=== PATIENT | female | born 1960 | race Caucasian/White ===

== ENCOUNTER → 2016-09-04 | Outpatient (CLI) | payer OTHER ==
--- NOTE | 2016-09-04 18:30 | XR ---
EXAMINATION TYPE: XR chest 2V DATE OF EXAM: 09/04/2016 6:15 PM COMPARISON: Prior chest x-ray May 01, 2011. HISTORY: Cough and congestion for 6 days. TECHNIQUE: Frontal and lateral views of the chest are obtained. FINDINGS: There is no focal air space opacity, pleural effusion, or pneumothorax seen. The cardiac silhouette size is within normal limits. The osseous structures are intact. IMPRESSION: No suspicious acute pulmonary process.
== END ==
LOC: RADXRMAIN 17:53
PROVIDERS: ATTEND Internal Medicine
DX: R05 Cough (principal)
CPT/HCPCS: 71020

== ENCOUNTER 2017-11-19 08:16 | Observation (INO) | payer OTHER ==
[2017-11-19] MEDS ORDERED: SODIUM CHLORIDE 0.9% 1,000 ML IV STA ×2 (08:51)
[2017-11-19] MEDS ORDERED: PANTOPRAZOLE 40 MG/10 ML VIAL IVP STA (09:17)
[2017-11-19] MEDS ORDERED: KETOROLAC 30 MG/ML 1 ML VIAL IVP STA (09:17)
[2017-11-19] MEDS ORDERED: MORPHINE SULFATE 2 MG/ML SYRINGE IVP STA ×2 (09:17→12:17)
[2017-11-19 09:26] LABS: Basophils % (A) 0 %; Eosinophils # (A) 0.1 k/uL (0-0.7); Eosinophils % (A) 1 %; HCT 41.6 % (34.0-46.0); HGB 14.2 gm/dL (11.4-16.0); Lymphocytes # (A) 1.1 k/uL (1.0-4.8); Lymphocytes % (A) 16 %; MCH 30.8 pg (25.0-35.0); MCHC 34.2 g/dL (31.0-37.0); MCV 89.9 fL (80.0-100.0); Mean Platelet Volume 6.7; Monocytes # (A) 0.3 k/uL (0-1.0); Monocytes % (A) 5 %; Neutrophils # (A) 5.1 k/uL (1.3-7.7); Neutrophils % (A) 76 %; Platelet Count 288 k/uL (150-450); RBC 4.62 m/uL (3.80-5.40); RDW 12.7 % (11.5-15.5); WBC 6.7 k/uL (3.8-10.6)
[2017-11-19] MEDS: ONDANSETRON 4 MG/2 ML VIAL IVP STA ×2 (09:26→12:30)
[2017-11-19 09:33] LABS: Appearance,Urine Clear (Clear); Bilirubin,Urine Negative (Negative); Blood,Urine Negative (Negative); Color,Urine Yellow; Glucose,Urine (UA) Negative (Negative); Ketones,Urine Negative (Negative); Leukocyte Esterase,Urine Trace (Negative); Mucus,Urine Rare /hpf; Nitrite,Urine Negative (Negative); PH, Urine 7.5 (5.0-8.0); Protein,Urine Trace (Negative); RBC,Urine 2 /hpf (0-5); Specific Gravity,Urine 1.016 (1.001-1.035); Squamous Epithelial Cell,Urine 2 /hpf (0-4); Urobilinogen,Urine <2.0 mg/dL (<2.0); WBC,Urine 4 /hpf (0-5)
[2017-11-19 09:38] LABS: ALT 31 U/L (9-52); AST 29 U/L (14-36); Albumin 4.3 g/dL (3.5-5.0); Alkaline Phosphatase 77 U/L (38-126); Amylase 101 U/L (30-110); Anion Gap 12 mmol/L; Blood Urea Nitrogen 13 mg/dL (7-17); Calcium 9.6 mg/dL (8.4-10.2); Carbon Dioxide 25 mmol/L (22-30); Chloride 104 mmol/L (98-107); Glucose 133 mg/dL (74-99); Lipase 550 U/L (23-300); Potassium 4.3 mmol/L (3.5-5.1); Sodium 141 mmol/L (137-145); Total Bilirubin 0.4 mg/dL (0.2-1.3); Total Protein 6.9 g/dL (6.3-8.2)
[2017-11-19 09:39] LABS: Partial Thromboplastin Time 23.5 sec (22.0-30.0); Prothrombin Time 9.6 sec (9.0-12.0)
--- NOTE | 2017-11-19 10:02 | XR ---
EXAMINATION TYPE: XR KUB DATE OF EXAM: 11/19/2017 CLINICAL DATA: 57-year-old female with abdominal pain, H COMPARISON: 05/01/2011 FINDINGS: Lung bases are clear. No evidence for free intraperitoneal air. No dilated small bowel or air-fluid levels. Scattered air is seen throughout the colon. Mild stool in the right side of the colon. No suspicious calcifications identified. IMPRESSION: No evidence of bowel obstruction or free intraperitoneal air.
--- NOTE | 2017-11-19 10:52 | ED ---
Abdominal Pain HPI <Buddy Davalos - Last Filed: 11/19/17 11:55> - General Source: patient, RN notes reviewed, old records reviewed Mode of arrival: ambulatory Limitations: no limitations <Mariah Wlelington - Last Filed: 11/19/17 12:36> - General Chief Complaint: Abdominal Pain Stated Complaint: abd pain Time Seen by Provider: 11/19/17 08:51 - History of Present Illness Initial Comments: 49-year-old female history of gastritis and ulcers presents today with onset of abdominal pain 4am. She reports that she did have a lot of fatty foods at a carnival yesterday evening. Patient states that she's had taken Maalox and Tums and has had multiple subsequent vomiting. She reports no alcohol consumption. He denies any recent fever or chills. She's been passing gas normally and normal stools. No blood in her emesis. She does have a history of gastritis.Patient denies any recent fever, chills, shortness of breath, chest pain, back pain, abdominal pain, nausea vomiting, numbness or tingling, dysuria or hematuria, constipation or diarrhea, headaches or visual changes, or any other current symptoms (Mariah Wellington) - Related Data Home Medications Medication Instructions Recorded Confirmed Aspirin EC [Ecotrin Low Dose] 81 mg PO DAILY 11/19/17 11/19/17 Vital Reds Herbal Supplement 1 scoop PO DAILY 11/19/17 11/19/17 Allergies Allergy/AdvReac Type Severity Reaction Status Date / Time No Known Allergies Allergy Verified 11/19/17 09:41 Review of Systems ROS Other: All systems not noted in ROS Statement are negative. <Buddy Davalos - Last Filed: 11/19/17 11:55> ROS Other: All systems not noted in ROS Statement are negative. <Mariah Wellington - Last Filed: 11/19/17 12:36> ROS Statement: Those systems with pertinent positive or pertinent negative responses have been documented in the HPI. Past Medical History Past Medical History: CVA/TIA, Thyroid Disorder History of Any Multi-Drug Resistant Organisms: None Reported Past Surgical History: Section Past Psychological History: No Psychological Hx Reported Smoking Status: Never smoker Past Alcohol Use History: Occasional Past Drug Use History: None Reported <Mariah Wellington - Last Filed: 11/19/17 12:36> General Exam <Buddy Davalos - Last Filed: 11/19/17 11:55> Limitations: no limitations General appearance: alert, in no apparent distress Head exam: Present: atraumatic, normocephalic, normal inspection Eye exam: Present: normal appearance, PERRL, EOMI. Absent: scleral icterus, conjunctival injection, periorbital swelling ENT exam: Present: normal exam, mucous membranes moist Neck exam: Present: normal inspection. Absent: tenderness, meningismus, lymphadenopathy Respiratory exam: Present: normal lung sounds bilaterally. Absent: respiratory distress, wheezes, rales, rhonchi, stridor Cardiovascular Exam: Present: regular rate, normal rhythm, normal heart sounds. Absent: systolic murmur, diastolic murmur, rubs, gallop, clicks GI/Abdominal exam: Present: soft, tenderness (That he's had abdominal tenderness right upper quadrant tenderness.), normal bowel sounds. Absent: distended, guarding, rebound, rigid Extremities exam: Present: normal inspection, full ROM, normal capillary refill. Absent: tenderness, pedal edema, joint swelling, calf tenderness Back exam: Present: normal inspection Neurological exam: Present: alert, oriented X3, CN II-XII intact Psychiatric exam: Present: normal affect, normal mood Skin exam: Present: warm, dry, intact, normal color. Absent: rash <Mariah Wellington - Last Filed: 11/19/17 12:36> - General Exam Comments Initial Comments: 29-year-old female. Alert and oriented. Patient is obese. No acute distress. (Mariah Wellington) Vital Signs 11/19/17 08:27 Temperature 98.4 F Pulse Rate 55 L Respiratory 16 Rate Blood Pressure 157/101 O2 Sat by Pulse 100 Oximetry Medical Decision Making - Lab Data Result diagrams: 11/19/17 09:07 11/19/17 09:07 <Buddy Davalos - Last Filed: 11/19/17 11:55> - Lab Data Result diagrams: 11/19/17 09:07 11/19/17 09:07 - Radiology Data Radiology results: report reviewed <Mariah Wellington - Last Filed: 11/19/17 12:36> - Medical Decision Making Patient reevaluated by myself, Dr. Davalos. Patient is resting comfortably in bed. Patient still has some symptoms and does not quite feel comfortable with discharge home. Abdomen is soft with mild to moderate tenderness in the epigastric region as well as right upper quadrant. Results reviewed. Case was discussed in detail with Dr. Rosa who will admit his patient with surgical consult. Computed tomography scan will also be obtained. (Buddy Davalos) 49-year-old female process results from today chief complaint of onset of upper abdominal pain. She should follow with gastritis is taking Maalox and Tums and vomiting. She is quite tender on exam. Symptoms seem to be correlated with eating fatty food the night before. Gallbladder ultrasound was obtained. There is thickening of the gallbladder however no other signs of acute cholecystitis. She did have a positive Medel sign. Labwork reviewed and showed evidence of elevated lipase at 550. White blood cell count is within normal limits. Urinalysis negative for any signs of infection. Patient It is quite tender. Computed tomography scan will be ordered and completed. We discussed the case with Dr. Jamil would like to keep the Patient for admission. Consult surgery. (Mariah Wellington) - Lab Data Lab Results 11/19/17 11/19/17 11/19/17 Range/Units 09:07 09:07 09:07 WBC 6.7 (3.8-10.6) k/uL RBC 4.62 (3.80-5.40) m/uL Hgb 14.2 (11.4-16.0) gm/dL Hct 41.6 (34.0-46.0) % MCV 89.9 (80.0-100.0) fL MCH 30.8 (25.0-35.0) pg MCHC 34.2 (31.0-37.0) g/dL RDW 12.7 (11.5-15.5) % Plt Count 288 (150-450) k/uL Neutrophils % 76 % Lymphocytes % 16 % Monocytes % 5 % Eosinophils % 1 % Basophils % 0 % Neutrophils # 5.1 (1.3-7.7) k/uL Lymphocytes # 1.1 (1.0-4.8) k/uL Monocytes # 0.3 (0-1.0) k/uL Eosinophils # 0.1 (0-0.7) k/uL Basophils # 0.0 (0-0.2) k/uL PT 9.6 (9.0-12.0) sec INR 1.0 (<1.2) APTT 23.5 (22.0-30.0) sec Sodium 141 (137-145) mmol/L Potassium 4.3 (3.5-5.1) mmol/L Chloride 104 (98-107) mmol/L Carbon Dioxide 25 (22-30) mmol/L Anion Gap 12 mmol/L BUN 13 (7-17) mg/dL Creatinine 0.64 (0.52-1.04) mg/dL Est GFR (CKD-EPI)AfAm >90 (>60 ml/min/1.73 sqM) Est GFR (CKD-EPI)NonAf >90 (>60 ml/min/1.73 sqM) Glucose 133 H (74-99) mg/dL Calcium 9.6 (8.4-10.2) mg/dL Total Bilirubin 0.4 (0.2-1.3) mg/dL AST 29 (14-36) U/L ALT 31 (9-52) U/L Alkaline Phosphatase 77 (38-126) U/L Total Protein 6.9 (6.3-8.2) g/dL Albumin 4.3 (3.5-5.0) g/dL Amylase 101 (30-110) U/L Lipase 550 H (23-300) U/L Urine Color Urine Appearance (Clear) Urine pH (5.0-8.0) Ur Specific [place] (1.001-1.035) Urine Protein (Negative) Urine Glucose (UA) (Negative) Urine Ketones (Negative) Urine Blood (Negative) Urine Nitrite (Negative) Urine Bilirubin (Negative) Urine Urobilinogen (<2.0) mg/dL Ur Leukocyte Esterase (Negative) Urine RBC (0-5) /hpf Urine WBC (0-5) /hpf Ur Squamous Epith Cells (0-4) /hpf Urine Mucus (None) /hpf 11/19/17 Range/Units 09:07 WBC (3.8-10.6) k/uL RBC (3.80-5.40) m/uL Hgb (11.4-16.0) gm/dL Hct (34.0-46.0) % MCV (80.0-100.0) fL MCH (25.0-35.0) pg MCHC (31.0-37.0) g/dL RDW (11.5-15.5) % Plt Count (150-450) k/uL Neutrophils % % Lymphocytes % % Monocytes % % Eosinophils % % Basophils % % Neutrophils # (1.3-7.7) k/uL Lymphocytes # (1.0-4.8) k/uL Monocytes # (0-1.0) k/uL Eosinophils # (0-0.7) k/uL Basophils # (0-0.2) k/uL PT (9.0-12.0) sec INR (<1.2) APTT (22.0-30.0) sec Sodium (137-145) mmol/L Potassium (3.5-5.1) mmol/L Chloride (98-107) mmol/L Carbon Dioxide (22-30) mmol/L Anion Gap mmol/L BUN (7-17) mg/dL Creatinine (0.52-1.04) mg/dL Est GFR (CKD-EPI)AfAm (>60 ml/min/1.73 sqM) Est GFR (CKD-EPI)NonAf (>60 ml/min/1.73 sqM) Glucose (74-99) mg/dL Calcium (8.4-10.2) mg/dL Total Bilirubin (0.2-1.3) mg/dL AST (14-36) U/L ALT (9-52) U/L Alkaline Phosphatase (38-126) U/L Total Protein (6.3-8.2) g/dL Albumin (3.5-5.0) g/dL Amylase (30-110) U/L Lipase (23-300) U/L Urine Color Yellow Urine Appearance Clear (Clear) Urine pH 7.5 (5.0-8.0) Ur Specific [place] 1.016 (1.001-1.035) Urine Protein Trace H (Negative) Urine Glucose (UA) Negative (Negative) Urine Ketones Negative (Negative) Urine Blood Negative (Negative) Urine Nitrite Negative (Negative) Urine Bilirubin Negative (Negative) Urine Urobilinogen <2.0 (<2.0) mg/dL Ur Leukocyte Esterase Trace H (Negative) Urine RBC 2 (0-5) /hpf Urine WBC 4 (0-5) /hpf Ur Squamous Epith Cells 2 (0-4) /hpf Urine Mucus Rare H (None) /hpf - Radiology Data Attenuating appearance of liver could reflect underlying fatty infiltration or other nonspecific hepatocellular disease. Correlate with L cheese and Patient risk factors. Gallbladders borderline distended there are no ancillary findings of acute cholecystitis however Patient sonographic Rupali sign is positives possibly due to referred pain to further imaging evaluation of gallbladder desired I did scan can be performed.KUB shows no evidence of bowel structure injury or peritoneal free air. (Mariah Wellington) Disposition <Buddy Davalos - Last Filed: 11/19/17 11:55> Is patient prescribed a controlled substance at d/c from ED?: No When asked, does pt state using other controlled substances?: No If prescribed controlled substance>3 days was MAPS reviewed?: No If opioid is for acute pain is fill amount 7 days or less?: No If Rx opioid, was Start Talking consent form obtained?: No Time of Disposition: 12:36 <Mariah Wellington - Last Filed: 11/19/17 12:36> Clinical Impression: Elevated lipase, Abdominal pain, Gallbladder anomaly Disposition: ADMITTED IP TO THIS HOSP Condition: Stable Referrals: Tommie Hollis MD [Primary Care Provider] - 1-2 days
--- NOTE | 2017-11-19 11:12 | US ---
EXAMINATION TYPE: US gallbladder DATE OF EXAM: 11/19/2017 COMPARISON: 05/01/2011 CLINICAL HISTORY: 57-year-old female Pain. EPIGASTRIC PAIN TECHNIQUE: Multiple sonographic images of the right upper quadrant are obtained. FINDINGS: EXAM MEASUREMENTS: Liver Length: 16.0 cm Gallbladder Wall: 0.2 cm CBD: 0.6 cm Right Kidney: 10.7 x 4.2 x 4.8 cm Pancreas: Suboptimal visualization of the pancreatic tail secondary to shadowing from bowel gas. The main pancreatic duct is prominent at 3 mm. Liver: difficult to penetrate. No focal lesion is seen. Gallbladder: Measures at the upper limits of normal distended at 3.8 cm wide. No abnormal gallbladde r wall thickening, pericholecystic fluid, or shadowing calculi. Evidence for sonographic Medel's sign: Yes CBD: wnl Right Kidney: No hydronephrosis. IMPR ION: 1. Attenuating appearance to the liver could reflect underlying fatty infiltration or other nonspecif ic hepatocellular disease. Correlate with LFTs and patient risk factors. 2. Gallbladder is borderline distended but there are no ancillary findings of acute cholecystitis. Ho wever, sonographic Medel's sign is reported positive, possibly due to referred pain. If further imag ing evaluation of the gallbladder is desired, HIDA scan can be performed.
[2017-11-19] MEDS ORDERED: IOPAMIDOL-300 CONTRAST 30 ML VIAL (ORAL USE) PO PRN (11:55)
[2017-11-19] MEDS ORDERED: ONDANSETRON 4 MG/2 ML VIAL IVP PRN (12:37)
[2017-11-19] MEDS ORDERED: BISACODYL 5 MG TABLET.DR PO PRN (12:37)
[2017-11-19] MEDS ORDERED: NALOXONE 0.4 MG/ML 1 ML VIAL IV PRN (12:37)
[2017-11-19] MEDS ORDERED: MAG HYDROX/AL HYDROX/SIMETH 30 ML CUP PO PRN (12:37)
[2017-11-19] MEDS ORDERED: LORazepam 2 MG/ML INJ IV PRN (12:37)
[2017-11-19] MEDS: SODIUM CHLORIDE 0.9% 1,000 ML IV SCH (13:42)
--- NOTE | 2017-11-19 14:54 | CT ---
EXAMINATION TYPE: CT abdomen pelvis w con DATE OF EXAM: 11/19/2017 COMPARISON: Correlation ultrasound same day HISTORY: 57-year-old female complains of nausea, vomiting, and epigastric pain. TECHNIQUE: Contiguous axial scanning of the abdomen and pelvis following administration of 100 ml Iso ulises 300 IV contrast. Delayed images through the kidneys and coronal/sagittal reconstructions perform ed. CT DLP: 1744.8 mGycm Automated exposure control for dose reduction was used. FINDINGS: Heart normal size without pericardial effusion. Lung bases clear without pleural effusion. Liver mildly enlarged at 18.7 cm. No significant fatty infiltration identified. Gallbladder is mildly distended at 4.3 cm wide with couple dependent calculi measuring 6 mm. No surro unding inflammation. Portal venous system is patent. No biliary ductal dilatation. Adrenal glands, kidneys, spleen, and pancreas appear within normal limits. No dilated small bowel, free fluid, or free air. No mesenteric or retroperitoneal lymphadenopathy. Normal appendix. Mild stool burden in the right side of the colon. There is diverticulosis at the di ction of the descending and sigmoid colon without pericolonic inflammatory change. Mildly redundant s igmoid colon. Uterus is anteverted. Possible abnormal thickening of the endometrial stripe up to 1.5 cm. Ovaries ar e visualized. No abnormal fluid collection in the pelvis or pelvic lymphadenopathy. Bones facet arthropathy lower lumbar spine. No osseous destructive process. IMPRESSION: 1. CHOLELITHIASIS. GALLBLADDER IS MILDLY HYDROPIC BUT WITHOUT ANY SURROUNDING INFLAMMATION. POSSIBLY RELATED TO FASTING STATE. IF CONCERN FOR EARLY ACUTE CHOLECYSTITIS, FOLLOW-UP ULTRASOUND OR HIDA SCAN . 2. MILD HEPATOMEGALY (18.7 CM). 3. DIVERTICULOSIS OF THE JUNCTION OF THE DESCENDING AND SIGMOID COLON. NO EVIDENCE FOR ACUTE DIVERTIC ULITIS. 4. POSSIBLE ABNORMAL ENDOMETRIAL STRIPE THICKENING IN A POSTMENOPAUSAL FEMALE AT 1.5 CM. CORRELATE FO R ANY POSTMENOPAUSAL BLEEDING ENDOMETRIAL CARCINOMA IS A DIFFERENTIAL CONSIDERATION. NONEMERGENT FOLLOW-UP ULTRASOUND CAN FURTHER EVALUATE.
[2017-11-19] MEDS: MORPHINE SULFATE 2 MG/ML SYRINGE IV PRN ×2 (16:06→20:22)
[2017-11-19] MEDS: KETOROLAC 30 MG/ML 1 ML VIAL IVP PRN ×2 (16:07→22:29)
--- NOTE | 2017-11-19 16:50 | P.GSCN ---
History of Present Illness Consult date: 11/19/17 Reason for Consult: Gallstone pancreatitis History of present illness: This a 57-year-old female who was admitted through the emergency room with complaints of abdominal pain. Patient had elevated lipase. Her computed tomography scan shows evidence of gallstones. She is admitted for gallstone hepatitis. Patient states she's had some similar complaints of abdominal pain the past. Past Medical History Past Medical History: CVA/TIA, Thyroid Disorder Additional Past Medical History / Comment(s): 2012 WHEN HAS CVA/TIA ALSO WAS PLACED ON THYROID MEDS BUT FEW MONTHS LATER EVERYTHING RETURNED TO NORMAL AND NO LONGER NEEDED MEDS, UTI. HAS A LOWER DENTAL BRIDGE. History of Any Multi-Drug Resistant Organisms: None Reported Past Surgical History: Section Past Anesthesia/Blood Transfusion Reactions: No Reported Reaction Additional Past Anesthesia/Blood Transfusion Reaction / Comm: CLAUSTERPHOBIA Smoking Status: Never smoker - Past Family History Mother Family Medical History: Dementia Additional Family Medical History / Comment(s): ALZHEIMERS, "STOMACH PROBLEMS", AAA Father Family Medical History: COPD, Coronary Artery Disease (CAD), Diabetes Mellitus Additional Family Medical History / Comment(s): CABG Medications and Allergies Home Medications Medication Instructions Recorded Confirmed Type Aspirin EC [Ecotrin Low Dose] 81 mg PO DAILY 11/19/17 11/19/17 History Vital Reds Herbal Supplement 1 scoop PO DAILY 11/19/17 11/19/17 History Allergies Allergy/AdvReac Type Severity Reaction Status Date / Time No Known Allergies Allergy Verified 11/19/17 09:41 Surgical - Exam Vital Signs Temp Pulse Resp BP Pulse Ox 98.4 F 55 L 16 157/101 100 11/19/17 08:27 11/19/17 08:27 11/19/17 08:27 11/19/17 08:27 11/19/17 08:27 - General well developed, no distress - Eyes PERRL - ENT normal pinna - Neck no masses - Respiratory normal expansion - Cardiovascular Rhythm: regular - Abdomen Epigastric tenderness Abdomen: soft Results - Labs 11/19/17 09:07 11/19/17 09:07 Abnormal Lab Results - Last 24 Hours (Table) 11/19/17 11/19/17 Range/Units 09:07 09:07 Glucose 133 H (74-99) mg/dL Lipase 550 H (23-300) U/L Urine Protein Trace H (Negative) Ur Leukocyte Esterase Trace H (Negative) Urine Mucus Rare H (None) /hpf Diabetes panel 11/19/17 Range/Units 09:07 Sodium 141 (137-145) mmol/L Potassium 4.3 (3.5-5.1) mmol/L Chloride 104 (98-107) mmol/L Carbon Dioxide 25 (22-30) mmol/L BUN 13 (7-17) mg/dL Creatinine 0.64 (0.52-1.04) mg/dL Glucose 133 H (74-99) mg/dL Calcium 9.6 (8.4-10.2) mg/dL AST 29 (14-36) U/L ALT 31 (9-52) U/L Alkaline Phosphatase 77 (38-126) U/L Total Protein 6.9 (6.3-8.2) g/dL Albumin 4.3 (3.5-5.0) g/dL Calcium panel 11/19/17 Range/Units 09:07 Calcium 9.6 (8.4-10.2) mg/dL Albumin 4.3 (3.5-5.0) g/dL Pituitary panel 11/19/17 Range/Units 09:07 Sodium 141 (137-145) mmol/L Potassium 4.3 (3.5-5.1) mmol/L Chloride 104 (98-107) mmol/L Carbon Dioxide 25 (22-30) mmol/L BUN 13 (7-17) mg/dL Creatinine 0.64 (0.52-1.04) mg/dL Glucose 133 H (74-99) mg/dL Calcium 9.6 (8.4-10.2) mg/dL Adrenal panel 11/19/17 Range/Units 09:07 Sodium 141 (137-145) mmol/L Potassium 4.3 (3.5-5.1) mmol/L Chloride 104 (98-107) mmol/L Carbon Dioxide 25 (22-30) mmol/L BUN 13 (7-17) mg/dL Creatinine 0.64 (0.52-1.04) mg/dL Glucose 133 H (74-99) mg/dL Calcium 9.6 (8.4-10.2) mg/dL Total Bilirubin 0.4 (0.2-1.3) mg/dL AST 29 (14-36) U/L ALT 31 (9-52) U/L Alkaline Phosphatase 77 (38-126) U/L Total Protein 6.9 (6.3-8.2) g/dL Albumin 4.3 (3.5-5.0) g/dL - Imaging CT scan - abdomen: report reviewed (Gallstones) Assessment and Plan Assessment: Gallstone pancreatitis. We'll plan for laparoscopic cholecystectomy once pericarditis resolves.
--- NOTE | 2017-11-19 18:17 | P.HPIM ---
History of Present Illness Chief complaint Abdominal pain History of present illness Patient is a 57-year-old female who presented after being awakened at 4:00 in the morning with abdominal pain. Mostly epigastric towards the right side. Patient states she was doing well yesterday evening. Apparently she ate a lot of fatty foods. She did not have any specific problems though last night until the pain woke her up early this morning. Patient tried taking Tums, Mylanta, Prilosec but the pain persisted and worsened over time and she came to the emergency room. Patient had several episodes of vomiting. No passage of the blood per rectum or melanotic stool. No definite hematemesis. Pain has somewhat relieved with the use of morphine. Past medical history Patient did have a history of previous gastric ulcer and treated with proton pump inhibitors in the past. She has not had any recurrent problems with that. Patient has had some positional vertigo in the past. The patient has had some mild intermittent asthma also. The patient has not had to have any maintenance medications. Previous surgeries include section. No history of myocardial infarction, hypertension or stroke. Home medications Patient does take aspirin 81 mg daily The patient also takes herbal supplement 1 scoop daily. No known ALLERGIES Review of systems Patient denies any unusual headaches or visual disturbances. No definite fever or chills. No cough or phlegm production. No hemoptysis. Denies any chest pain or unusual shortness of breath. Gastrointestinal review as stated above. No unusual rectal or vaginal bleeding. No unusual edema. No history of any focal weakness Family history Father apparently had diabetes and coronary artery disease. Social history no history of smoking in the past or any excessive alcohol usage. Patient does live locally with her family. Physical examination Vital signs: Temperature 96.2 with a pulse of 49 and respirations 18. Blood pressure 131/80 and she is 99% saturated on room air. She is alert and oriented. Head and neck exam is unremarkable. Breast and pelvic exam deferred. Lung and heart exam was clear and regular. Abdomen is positive for bowel sounds. There is some tenderness in the right upper quadrant and epigastric area no marked rebound or guarding at this time. No masses or organomegaly detected. She is somewhat obese. Extremities reveal no edema. Neurologic she is alert and oriented. Moving all extremities. No cranial nerve deficits. Laboratory White count 6.7 with a hemoglobin 14.2 and a platelet count of 288. INR is 1.0. PTT 23.5. Electrolytes are normal with a potassium 4.3. BUN of 13 with creatinine 0.6 for given her GFR greater than 90. Blood sugar is 133 Calcium and liver function tests were normal. Amylase normal at 101 but lipase was elevated at 550. A urinalysis showed trace protein trace leukocyte Esterace but only 4 white cells and 2 RBCs. Chest x-ray revealed no acute disease. Ultrasound revealed borderline gallbladder distention. Computed tomography scan of the abdomen and pelvis possible early cholecystitis. Mild hepatomegaly. No evidence of acute diverticulitis. But some diverticulosis of the descending and sigmoid colon. Possible abnormal endometrial stripe of the uterus. Impressions Acute gallbladder attack with early cholecystitis. Abdominal pain and nausea and vomiting. In this 57-year-old female with underlying obesity. Mild lipase elevation possibly consistent with pancreatitis. Plans Continue with patient to be nothing by mouth. Analgesics as needed. IV fluids. Follow-up labs. Surgical consult. Discussed with patient and medical staff this evening. Past Medical History Past Medical History: CVA/TIA, Thyroid Disorder Additional Past Medical History / Comment(s): 2012 WHEN HAS CVA/TIA ALSO WAS PLACED ON THYROID MEDS BUT FEW MONTHS LATER EVERYTHING RETURNED TO NORMAL AND NO LONGER NEEDED MEDS, UTI. HAS A LOWER DENTAL BRIDGE. History of Any Multi-Drug Resistant Organisms: None Reported Past Surgical History: Section Past Anesthesia/Blood Transfusion Reactions: No Reported Reaction Additional Past Anesthesia/Blood Transfusion Reaction / Comment(s): CLAUSTERPHOBIA Smoking Status: Never smoker - Past Family History Mother Family Medical History: Dementia Additional Family Medical History / Comment(s): ALZHEIMERS, "STOMACH PROBLEMS", AAA Father Family Medical History: COPD, Coronary Artery Disease (CAD), Diabetes Mellitus Additional Family Medical History / Comment(s): CABG Medications and Allergies Home Medications Medication Instructions Recorded Confirmed Type Aspirin EC [Ecotrin Low Dose] 81 mg PO DAILY 11/19/17 11/19/17 History Vital Reds Herbal Supplement 1 scoop PO DAILY 11/19/17 11/19/17 History Allergies Allergy/AdvReac Type Severity Reaction Status Date / Time No Known Allergies Allergy Verified 11/19/17 09:41 Physical Exam Vitals: Vital Signs Temp Pulse Pulse Resp BP BP Pulse Ox 11/19/17 14:40 96.2 F L 49 L 18 131/80 99 11/19/17 14:30 98.7 F 52 L 18 126/78 98 11/19/17 13:46 98.7 F 50 L 18 125/72 99 11/19/17 12:29 53 L 18 129/65 98 11/19/17 08:27 98.4 F 55 L 16 157/101 100 Intake and Output 11/19/17 11/19/17 11/19/17 06:59 14:59 22:59 Other: Weight 99.79 kg Results CBC & Chem 7: 11/19/17 09:07 11/19/17 09:07 Labs: Abnormal Lab Results - Last 24 Hours (Table) 11/19/17 11/19/17 Range/Units 09:07 09:07 Glucose 133 H (74-99) mg/dL Lipase 550 H (23-300) U/L Urine Protein Trace H (Negative) Ur Leukocyte Esterase Trace H (Negative) Urine Mucus Rare H (None) /hpf
[2017-11-19] MEDS: ONDANSETRON 4 MG/2 ML VIAL IVP PRN (18:30)
[2017-11-20] MEDS: ONDANSETRON 4 MG/2 ML VIAL IVP PRN ×4 (00:30→20:49)
[2017-11-20] MEDS: SODIUM CHLORIDE 0.9% 1,000 ML IV SCH ×4 (01:13→20:47)
[2017-11-20] MEDS: MORPHINE SULFATE 2 MG/ML SYRINGE IV PRN ×5 (03:13→18:51)
[2017-11-20] MEDS: KETOROLAC 30 MG/ML 1 ML VIAL IVP PRN ×4 (04:57→23:26)
--- NOTE | 2017-11-20 07:37 | P.PN ---
Progress Note - Text The patient is a 57-year-old female who presented yesterday morning to emergency room with epigastric and right upper quadrant abdominal pain associated with nausea and vomiting. Patient on subsequent studies is found to have gallstones. Patient did have some elevated lipase level on admission. The patient has been on analgesics and IV fluids. Nothing by mouth. She states her pain is somewhat better this morning. She denies any shortness of breath or chest pain. Vital signs reveal temperature 96.8 with a pulse of 52 and respirations 20. Blood pressure 91/52 and she is 100% saturated on room air. Lung and heart exam was clear and regular. There is some epigastric and right upper quadrant discomfort. No definite rebound or masses detected. No unusual distal edema. No new neurological deficits or changes. Laboratory values from this morning are pending. Impressions and plans Overall this 57-year-old female with underlying gallstone pancreatitis associated with severe abdominal pain and nausea and vomiting. Improving presently clinically with conservative therapy. We'll see what her lab values are this morning. Anticipating the likelihood of upcoming cholecystectomy pending labs and clinical response. We'll await further recommendations from surgery. Discussed with patient and at bedside this morning.
[2017-11-20] MEDS: PANTOPRAZOLE 40 MG/10 ML VIAL IV SCH (07:39)
[2017-11-20 08:50] LABS: Basophils % (A) 0 %; Eosinophils # (A) 0.2 k/uL (0-0.7); Eosinophils % (A) 4 %; HCT 36.4 % (34.0-46.0); HGB 12.3 gm/dL (11.4-16.0); Lymphocytes # (A) 1.4 k/uL (1.0-4.8); Lymphocytes % (A) 34 %; MCH 31.6 pg (25.0-35.0); MCHC 33.8 g/dL (31.0-37.0); MCV 93.5 fL (80.0-100.0); Mean Platelet Volume 6.7; Monocytes # (A) 0.3 k/uL (0-1.0); Monocytes % (A) 6 %; Neutrophils # (A) 2.3 k/uL (1.3-7.7); Neutrophils % (A) 55 %; Platelet Count 232 k/uL (150-450); RBC 3.89 m/uL (3.80-5.40); RDW 13.4 % (11.5-15.5); WBC 4.2 k/uL (3.8-10.6)
[2017-11-20 09:16] LABS: ALT 33 U/L (9-52); AST 31 U/L (14-36); Albumin 3.2 g/dL (3.5-5.0); Alkaline Phosphatase 57 U/L (38-126); Amylase 54 U/L (30-110); Blood Urea Nitrogen 11 mg/dL (7-17); Carbon Dioxide 24 mmol/L (22-30); Chloride 108 mmol/L (98-107); Cholesterol 182 mg/dL (<200); Glucose 100 mg/dL (74-99); HDL Cholesterol 48 mg/dL (40-60); LDL Cholesterol,Calculated 107 mg/dL (0-99); Lipase 190 U/L (23-300); Potassium 4.3 mmol/L (3.5-5.1); Total Bilirubin 0.3 mg/dL (0.2-1.3); Total Protein 5.4 g/dL (6.3-8.2); Triglycerides 135 mg/dL (<150)
[2017-11-20 09:28] LABS: Anion Gap 8 mmol/L; Sodium 140 mmol/L (137-145)
--- NOTE | 2017-11-20 12:47 | P.PN ---
Progress Note - Text Progress Note Date: 11/20/17 The patient feels better. She has less abdominal pain. On exam her vital signs are stable. Her abdomen soft. Patient be scheduled for laparoscopic cholecystectomy for gallstone pancreatitis tomorrow.
[2017-11-20 20:58] LABS: Hemoglobin A1C 5.2 % (4.0-6.0)
--- NOTE | 2017-11-21 12:30 | PN ---
PROGRESS NOTE The patient is a 57-year-old female who presented 2 days previous with right upper quadrant pain, nausea, vomiting, found to have gallstones and elevated lipase level consistent with gallstone pancreatitis. Patient has been treated with IV fluids, analgesics and has been seen by surgery, Dr. Zuleta, and anticipating cholecystectomy today. The patient is up in her room today. States that her pain has been present and intermittent headache, but relieved with analgesics. Her vital signs revealed temperature 97.1, pulse of 59, respirations 16, blood pressure 112/55, and she is 96% saturated on room air. Head and neck exam is otherwise unremarkable. Lungs and cardiac exam is clear. Abdomen does reveal still some epigastric discomfort. Extremities no unusual edema. No focal neurological changes at this time. LABS: Labs from yesterday did show her lipase returning back to normal. PLAN: Plans are for laparoscopic cholecystectomy today as discussed with her and her at bedside in the room this morning. We will await further recommendations from surgery, Dr. Zuleta. MMODL / IJN: [id number] /
[2017-11-21] MEDS: PANTOPRAZOLE 40 MG/10 ML VIAL IV SCH (13:48)
[2017-11-21] MEDS ORDERED: LACTATED RINGERS 1,000 ML IV ONE (14:29)
[2017-11-21] MEDS: ONDANSETRON 4 MG/2 ML VIAL IVP PRN ×2 (14:38→20:11)
[2017-11-21] MEDS ORDERED: HEPARIN SODIUM,PORCINE 5,000 UNIT/ML 1 ML VIAL SQ ONE (14:57)
[2017-11-21] MEDS ORDERED: GLYCOPYRROLATE 0.2 MG/ML 2 ML VIAL ONE (15:00)
[2017-11-21] MEDS ORDERED: NEOSTIGMINE 1 MG/ML 10 ML VIAL ONE (15:00)
[2017-11-21] MEDS ORDERED: fentaNYL (PF) 50 MCG/ML 2 ML AMP ONE (15:00)
[2017-11-21] MEDS ORDERED: KETOROLAC 30 MG/ML 1 ML VIAL ONE (15:00)
[2017-11-21] MEDS ORDERED: MIDAZOLAM 2 MG/2 ML VIAL ONE (15:00)
[2017-11-21] MEDS ORDERED: SUCCINYLCHOLINE CHLORIDE 100 MG/5 ML SYR IV ONE (15:00)
[2017-11-21] MEDS ORDERED: PROPOFOL 10 MG/ML 20 ML VIAL IV ONE (15:00)
[2017-11-21] MEDS ORDERED: LIDOCAINE 1% INJ 10MG/ML (20 ML MDV) ONE (15:00)
[2017-11-21] MEDS ORDERED: ROCURONIUM BROMIDE 10 MG/ML 10 ML VIAL IV ONE (15:00)
[2017-11-21] MEDS ORDERED: HYDROmorphone (PF) 1 MG/ML ONE (15:00)
[2017-11-21] MEDS ORDERED: SODIUM CHLORIDE 0.9% 50 ML with ceFAZolin 2,000 MG IV ONE ×2 (15:22)
[2017-11-21] MEDS ORDERED: BUPIVACAINE (PF) 0.5% 30 ML VIAL SQ ONE (15:25)
--- NOTE | 2017-11-21 15:58 | P.OP ---
Date of Procedure: 11/21/17 Preoperative Diagnosis: Gallstone pancreatitis Postoperative Diagnosis: Gallstone pancreatitis Procedure(s) Performed: Laparoscopic cholecystectomy Anesthesia: VILLA Surgeon: Chele Zuleta Estimated Blood Loss (ml): 5 Pathology: other (Gallbladder) Condition: stable Disposition: PACU Description of Procedure: The patient was placed on the operating table. The patient received a general endotracheal tube anesthesia. The patients abdomen was prepped and draped in the usual sterile fashion. Through an infraumbilical stab incision, the fascia of the anterior abdominal wall was grasped with a pair of Kochers and then the Veress needle was placed in the peritoneal cavity. Position of the Veress needle was confirmed with positive drop test. The abdomen was then insufflated. After adequate insufflation, the 10 mm trocar was placed in the peritoneal cavity. Following this the laparoscope was placed in the peritoneal cavity. The patient was placed in the head-up, right side up position and then a 5 mm trocar was placed in the right lateral and right subcostal position under direct visualization. A 8 mm trocar was placed in the epigastric position. The gallbladder was grasped in the fundus and infundibulum. Traction on the gallbladder was placed in the lateral and the cephalad positions. The triangle of Calot was visualized.. The cystic duct was bluntly dissected until the union of the cystic duct and common bile duct was seen. The cystic duct was then divided and sealed with the Harmonic scissors. A PDS Endoloop was then placed throughout the cystic duct stump. The cystic artery divided and sealed with the Harmonic scissors. The gallbladder was then removed from the liver bed using Harmonic scissors. The gallbladder was then extracted through the epigastric port site. Operative field was checked for any bleeding spots and Harmonic scissors was used to coagulate the liver bed. The abdomen was irrigated. The trocars were removed. The skin was closed using interrupted 3-0 Vicryl suture. Dermabond dressing were applied. The patient tolerated the procedure well.
[2017-11-21] MEDS ORDERED: HYDROmorphone 0.5 MG/0.5 ML SYRINGE IVP ONE ×2 (16:25→16:35)
[2017-11-21] MEDS ORDERED: ONDANSETRON 4 MG/2 ML VIAL IVP ONE (16:35)
[2017-11-21 16:53] VITALS: RESP 16
[2017-11-21] MEDS: SODIUM CHLORIDE 0.9% 1,000 ML IV SCH ×2 (17:49→17:54)
[2017-11-21 23:34] VITALS: PULSE 62
[2017-11-22] MEDS: KETOROLAC 30 MG/ML 1 ML VIAL IVP PRN ×3 (00:15→11:44)
[2017-11-22] MEDS: SODIUM CHLORIDE 0.9% 1,000 ML IV SCH ×2 (05:17→10:24)
[2017-11-22 06:34] VITALS: BP 116/75; TEMP 98.3
--- NOTE | 2017-11-22 08:03 | P.PN ---
Progress Note - Text The patient is a 57-year-old female presented to the emergency room with abdominal pain and gallstone pancreatitis. Patient underwent laparoscopic cholecystectomy yesterday. This morning she is still having some surgical site pain. She generally feels better. Some nausea but she did eat a bit of her morning breakfast so far. No chest pain or shortness of breath. Temperature 98.3 with a pulse of 62 and respirations 16. Blood pressure 116/75 and she is 97% saturated on room air. Lung and heart exam was clear and regular. There is some abdominal distention. Mild tenderness. No rebound or guarding noted. No neurological deficits. Impressions and plans Patient recovering from gallstone pancreatitis status post cholecystectomy. We' ll await further recommendations from surgery today. Discussed with patient and nursing staff this morning.
[2017-11-22] MEDS: PANTOPRAZOLE 40 MG/10 ML VIAL IV SCH (10:24)
--- NOTE | 2017-11-22 10:49 | P.DS ---
Providers Date of admission: 11/19/17 11:55 Expected date of discharge: 11/22/17 Attending physician: Tommie Choi Consults: 11/19/17 11:55 Consult Physician Urgent Consulting Provider: Chele Butler Consult Reason/Comments: ab pain Do you want consulting provider notified?: Yes Primary care physician: [place] Agnieszka Baldpate Hospital Course: 57-year-old female presented on the day of admission to the emergency room with acute onset of abdominal pain. Patient stated that it woke her up around 4 in the morning. Patient stated that she did eat a lot of fatty food the night before. Patient stated that she tried [id number] Maalox and Tums and it did not offer any relief. states she felt nauseated and did vomit. Patient stated that she felt feverish and chilled emergency room a computed tomography scan of the abdomen pelvis was obtained. Reviewing the report showed cholelithiasis gallbladder mildly hydropic without any surrounding inflammation. Diverticulosis with no evidence of acute diverticulitis KUB obtained showed no evidence of a bowel obstruction or free air ultrasound of the gallbladder report showed evidence of Medel sign she was admitted to the services of the attending Dr. choi with a surgical consultation dr butler requested Lipase on admission was elevated at 550 amylase 101 AST and ALT were not elevated Patient did undergo laparoscopic cholecystectomy for gallstone pancreatitis on November 21. No postop events. At the time of discharge patient was tolerating a diet passing gas up ambulating on the unit surgical dressing sites dry. Patient was felt to be appropriate to proceed with a discharge to home. Impression discharge diagnoses Laparoscopic cholecystectomy for gallstone pancreatitis done on November 21 Morbid obesity BMI 44 Present on admission right upper quadrant abdominal pain suspect due to Gallstone pancreatitis Discharge summary dictated for Dr. Choi The above impression and plan of care have been discussed and directed by signing physician. Zehra Merrill nurse practitioner acting as scribe for signing physician. Patient Condition at Discharge: Stable Plan - Discharge Summary Discharge Rx Participant: No New Discharge Prescriptions: New HYDROcodone/APAP 5-325MG [[place] 5-325] 1 tab PO Q6HR PRN 3 Days #12 tab PRN Reason: Mild Pain Continue Aspirin EC [Ecotrin Low Dose] 81 mg PO DAILY Vital Reds Herbal Supplement 1 scoop PO DAILY Discharge Medication List Aspirin EC [Ecotrin Low Dose] 81 mg PO DAILY 11/19/17 [History] Vital Reds Herbal Supplement 1 scoop PO DAILY 11/19/17 [History] HYDROcodone/APAP 5-325MG [[place] 5-325] 1 tab PO Q6HR PRN 3 Days #12 tab [Rx] Follow up Appointment(s)/Referral(s): Tommie Choi MD [Primary Care Provider] - 1 Week Chele Butler MD [STAFF PHYSICIAN] - 1 Week Patient Instructions/Handouts: *Surgery [facility] - Laparoscopic Cholecystectomy Discharge Instructions, Pancreatitis (DC) Activity/Diet/Wound Care/Special Instructions: Regular diet. Activity as tolerated, no heavy lifting, pushing or pulling. No tub bath for six weeks. Shower daily. No lifting over 10 pounds for the next 6 weeks. Do not remove the plastic dressings until seen in follow-up surgical visit May use ice packs to surgical site. No driving while taking narcotic for pain. May return to work after seen in the follow-up surgical visit Discharge Disposition: HOME SELF-CARE
== END 2017-11-22 13:47 | disposition home or self-care (01) ==
LOC: EC 08:16 → 5MS5E 11:55 → 4MS4W 14:00
PROVIDERS: ADMIT Internal Medicine; ATTEND Internal Medicine
DX: R10.11 Right upper quadrant pain (principal); K85.10 Biliary acute pancreatitis without necrosis or infection; R11.2 Nausea with vomiting, unspecified; R10.13 Epigastric pain; R42 Dizziness and giddiness; R74.8 Abnormal levels of other serum enzymes; Z87.11 Personal history of peptic ulcer disease; K57.90 Diverticulosis of intestine, part unspecified, without perforation or abscess without bleeding; K80.12 Calculus of gallbladder with acute and chronic cholecystitis without obstruction; K29.70 Gastritis, unspecified, without bleeding; Z68.41 Body mass index [BMI] 40.0-44.9, adult; E66.01 Morbid (severe) obesity due to excess calories; J45.20 Mild intermittent asthma, uncomplicated; Z86.73 Personal history of transient ischemic attack (TIA), and cerebral infarction without residual deficits; Z79.82 Long term (current) use of aspirin; Z83.3 Family history of diabetes mellitus; Z82.49 Family history of ischemic heart disease and other diseases of the circulatory system; Z82.0 Family history of epilepsy and other diseases of the nervous system; Z82.5 Family history of asthma and other chronic lower respiratory diseases
CPT/HCPCS: 47562; 99285; 96376 ×5; 96375 ×5; 96374 ×2; 96361 ×9; 36415; 88304; 80061; 80053 ×2; 82150 ×2; 83690 ×2; 85025 ×2; 85610; 85730; 81001; 83036; 74018; 76705; 74177; G0378 ×5; J2250; J1644; J2710; J2405 ×3; J2001; J3010; J1885 ×4; J2270 ×2; J1170 ×2; J0690; J0330; J2704; C9113 ×3; Q9967

== ENCOUNTER → 2017-11-29 | Outpatient (CLI) | payer OTHER ==
[2017-11-29 11:53] LABS: Basophils % (A) 0 %; Eosinophils # (A) 0.2 k/uL (0-0.7); Eosinophils % (A) 4 %; HCT 44.5 % (34.0-46.0); HGB 14.6 gm/dL (11.4-16.0); Lymphocytes # (A) 1.5 k/uL (1.0-4.8); Lymphocytes % (A) 28 %; MCH 30.2 pg (25.0-35.0); MCHC 32.8 g/dL (31.0-37.0); MCV 92.1 fL (80.0-100.0); Mean Platelet Volume 6.2; Monocytes # (A) 0.3 k/uL (0-1.0); Monocytes % (A) 7 %; Neutrophils # (A) 3.2 k/uL (1.3-7.7); Neutrophils % (A) 60 %; Platelet Count 285 k/uL (150-450); RBC 4.83 m/uL (3.80-5.40); RDW 13.4 % (11.5-15.5); WBC 5.3 k/uL (3.8-10.6)
[2017-11-29 12:19] LABS: ALT 45 U/L (9-52); AST 33 U/L (14-36); Albumin 4.5 g/dL (3.5-5.0); Alkaline Phosphatase 80 U/L (38-126); Amylase 57 U/L (30-110); Anion Gap 11 mmol/L; Blood Urea Nitrogen 13 mg/dL (7-17); Calcium 9.6 mg/dL (8.4-10.2); Carbon Dioxide 25 mmol/L (22-30); Chloride 104 mmol/L (98-107); Glucose 99 mg/dL (74-99); Lipase 135 U/L (23-300); Potassium 4.7 mmol/L (3.5-5.1); Sodium 140 mmol/L (137-145); Total Bilirubin 0.8 mg/dL (0.2-1.3); Total Protein 7.3 g/dL (6.3-8.2)
== END | disposition home or self-care (01) ==
LOC: LABWHC1 11:23
PROVIDERS: ATTEND Internal Medicine
DX: R53.83 Other fatigue (principal); E87.8 Other disorders of electrolyte and fluid balance, not elsewhere classified
CPT/HCPCS: 36415; 80053; 82150; 83690; 85025

== ENCOUNTER → 2018-12-24 | Outpatient (CLI) | payer BC ==
[2018-12-24 08:05] LABS: Basophils % (A) 1 %; Eosinophils # (A) 0.3 k/uL (0-0.7); Eosinophils % (A) 5 %; HGB 13.8 gm/dL (11.4-16.0); Lymphocytes # (A) 1.7 k/uL (1.0-4.8); Lymphocytes % (A) 29 %; MCH 30.7 pg (25.0-35.0); MCHC 33.6 g/dL (31.0-37.0); MCV 91.5 fL (80.0-100.0); Mean Platelet Volume 6.6; Monocytes # (A) 0.3 k/uL (0-1.0); Monocytes % (A) 5 %; Neutrophils # (A) 3.4 k/uL (1.3-7.7); Neutrophils % (A) 59 %; Platelet Count 290 k/uL (150-450); RBC 4.48 m/uL (3.80-5.40); RDW 12.8 % (11.5-15.5); WBC 5.8 k/uL (3.8-10.6)
[2018-12-24 11:22] LABS: African American GFR (CKD) 109.9 (60.0-200.0); Albumin 4.3 g/dL (3.80-4.90); Albumin/Globulin Ratio 2.39 (1.60-3.17); BUN/Creat Ratio 17.14 Ratio (12.00-20.00); Calcium 9.2 mg/dL (8.7-10.3); Globulin 1.8 g/dL (1.6-3.3); LDL Cholesterol,Calculated 121.8 mg/dL (0.0-131.0); Potassium 4.4 mmol/L (3.5-5.5); Total Bilirubin 0.5 mg/dL (0.2-1.2); Total Protein 6.1 g/dL (6.2-8.2); VLDL Calculation 26.2 mg/dL (5.00-40.00)
== END ==
LOC: LABWHC1 06:38
PROVIDERS: ATTEND Nurse Practitioner Family
DX: E78.5 Hyperlipidemia, unspecified (principal); E87.8 Other disorders of electrolyte and fluid balance, not elsewhere classified; R79.9 Abnormal finding of blood chemistry, unspecified; Z13.9 Encounter for screening, unspecified; Z13.228 Encounter for screening for other metabolic disorders; Z13.220 Encounter for screening for lipoid disorders
CPT/HCPCS: 36415; 80053; 80061; 85025

== ENCOUNTER → 2018-12-25 | Outpatient (CLI) | payer BC ==
[2018-12-30 10:42] LABS: Anabasine Urine <2.0 ng/mL (<2.0)
== END | disposition home or self-care (01) ==
LOC: LABWHC1 08:37
PROVIDERS: ATTEND Nurse Practitioner Family
DX: Z00.01 Encounter for general adult medical examination with abnormal findings (principal); Z13.9 Encounter for screening, unspecified
CPT/HCPCS: 80323

== ENCOUNTER → 2019-07-05 | Outpatient (CLI) | payer BC ==
[2019-07-05 10:22] LABS: Potassium 4.3 mmol/L (3.5-5.1)
[2019-07-05 10:24] LABS: Basophils % (A) 1 %; Eosinophils # (A) 0.2 k/uL (0-0.7); Eosinophils % (A) 4 %; HGB 14.2 gm/dL (11.4-16.0); Lymphocytes # (A) 1.2 k/uL (1.0-4.8); Lymphocytes % (A) 23 %; MCH 31.5 pg (25.0-35.0); MCHC 34.6 g/dL (31.0-37.0); Mean Platelet Volume 6.8; Monocytes # (A) 0.3 k/uL (0-1.0); Monocytes % (A) 6 %; Neutrophils # (A) 3.3 k/uL (1.3-7.7); Neutrophils % (A) 64 %; Platelet Count 321 k/uL (150-450); RDW 12.5 % (11.5-15.5); WBC 5.2 k/uL (3.8-10.6)
== END | disposition home or self-care (01) ==
LOC: LABPAT 09:51
PROVIDERS: ATTEND Orthopaedic Surgery
DX: Z01.818 Encounter for other preprocedural examination (principal); Z01.812 Encounter for preprocedural laboratory examination; M23.91 Unspecified internal derangement of right knee
CPT/HCPCS: 36415; 80051; 85025; 93005

== ENCOUNTER 2020-01-09 07:39 | Observation (INO) | payer BC ==
[2020-01-09] MEDS ORDERED: MORPHINE SULFATE 4 MG/ML SYRINGE IV STA (08:07)
--- NOTE | 2020-01-09 08:14 | ED ---
General Adult HPI - General Chief complaint: Extremity Injury, Upper Stated complaint: left shoulder pain Time Seen by Provider: 01/09/20 07:45 Source: patient, RN notes reviewed, old records reviewed Mode of arrival: wheelchair Limitations: no limitations - History of Present Illness Initial comments: 59 -year-old female presenting with left-sided chest pain. Patient states she was lifting her dog and developed chest pain in the muscle of her left breast. Pain was severe in onset. She states it radiates into her left shoulder. Denies arm or leg pain. Denies abdominal pain. Denies nausea. She does report diaphoresis. She has no known history of coronary artery disease. - Related Data Home Medications Medication Instructions Recorded Confirmed Aspirin EC [Ecotrin Low Dose] 81 mg PO DAILY 11/19/17 11/19/17 Vital Reds Herbal Supplement 1 scoop PO DAILY 11/19/17 11/19/17 Previous Rx's Medication Instructions Recorded HYDROcodone/APAP 5-325MG [[place] 1 tab PO Q6HR PRN 3 Days #12 tab 11/22/17 5-325] Allergies Allergy/AdvReac Type Severity Reaction Status Date / Time No Known Allergies Allergy Verified 01/09/20 07:57 Review of Systems ROS Statement: Those systems with pertinent positive or pertinent negative responses have been documented in the HPI. ROS Other: All systems not noted in ROS Statement are negative. Past Medical History Past Medical History: CVA/TIA, Thyroid Disorder Additional Past Medical History / Comment(s): 2012 WHEN HAS CVA/TIA ALSO WAS PLACED ON THYROID MEDS BUT FEW MONTHS LATER EVERYTHING RETURNED TO NORMAL AND NO LONGER NEEDED MEDS, UTI. History of Any Multi-Drug Resistant Organisms: None Reported Past Surgical History: Section, Cholecystectomy Past Anesthesia/Blood Transfusion Reactions: No Reported Reaction Additional Past Anesthesia/Blood Transfusion Reaction / Comment(s): CLAUSTERPHOBIA Past Psychological History: No Psychological Hx Reported Smoking Status: Never smoker Past Alcohol Use History: Occasional Past Drug Use History: None Reported - Past Family History Mother Family Medical History: Dementia Additional Family Medical History / Comment(s): ALZHEIMERS, "STOMACH PROBLEMS", AAA Father Family Medical History: COPD, Coronary Artery Disease (CAD), Diabetes Mellitus Additional Family Medical History / Comment(s): CABG General Exam Limitations: no limitations General appearance: alert, in distress Head exam: Present: atraumatic, normocephalic Eye exam: Present: normal appearance, PERRL ENT exam: Present: normal exam Neck exam: Present: normal inspection. Absent: tenderness, meningismus Respiratory exam: Present: normal lung sounds bilaterally. Absent: respiratory distress, wheezes Cardiovascular Exam: Present: regular rate, normal rhythm GI/Abdominal exam: Present: soft. Absent: distended, tenderness, guarding Extremities exam: Present: normal inspection, normal capillary refill. Absent: pedal edema Neurological exam: Present: alert, oriented X3, CN II-XII intact. Absent: motor sensory deficit Psychiatric exam: Present: normal affect, normal mood Skin exam: Present: warm, dry, intact. Absent: cyanosis, diaphoretic Course Vital Signs 01/09/20 01/09/20 07:55 09:15 Temperature 98.1 F Pulse Rate 72 50 L Respiratory 18 18 Rate Blood Pressure 142/89 126/70 O2 Sat by Pulse 99 99 Oximetry EKG Findings - EKG Comments: EKG Findings:: EKG: Normal sinus rhythm, rate of 60, AZ interval 168, QRS dura tion 82, QTC 418, no ST segment elevation. Repeat EKG sinus bradycardia, rate of 56, AZ interval 158, QRS duration 82, QTC [address] segment elevation Medical Decision Making - Medical Decision Making Patient presenting with chest pain onset just prior to arrival. Described as left sided chest pain. Patient appeared quite uncomfortable on initial evaluation. Diaphoretic. Patient has EKG showing sinus rhythm with no ST segment elevation. Workup is initiated, she has a chest x-ray which is negative for acute cardiopulmonary disease. She has a normal CBC, normal CMP, negative d-dimer, negative troponin. Given aspirin and morphine in the emergency department. Patient will be kept in observation for serial cardiac enzymes, telemetry and cardiology consultation. - Lab Data Result diagrams: 01/09/20 08:20 01/09/20 08:20 Lab Results 01/09/20 01/09/20 01/09/20 Range/Units 08:20 08:20 08:20 WBC 6.8 (3.8-10.6) k/uL RBC 4.70 (3.80-5.40) m/uL Hgb 14.2 (11.4-16.0) gm/dL Hct 42.8 (34.0-46.0) % MCV 91.1 (80.0-100.0) fL MCH 30.2 (25.0-35.0) pg MCHC 33.2 (31.0-37.0) g/dL RDW 12.7 (11.5-15.5) % Plt Count 275 (150-450) k/uL Neutrophils % 71 % Lymphocytes % 18 % Monocytes % 5 % Eosinophils % 4 % Basophils % 1 % Neutrophils # 4.8 (1.3-7.7) k/uL Lymphocytes # 1.2 (1.0-4.8) k/uL Monocytes # 0.4 (0-1.0) k/uL Eosinophils # 0.3 (0-0.7) k/uL Basophils # 0.1 (0-0.2) k/uL PT 9.6 (9.0-12.0) sec INR 0.9 (<1.2) APTT 23.4 (22.0-30.0) sec D-Dimer 0.29 (<0.60) mg/L FEU Sodium 138 (137-145) mmol/L Potassium 4.3 (3.5-5.1) mmol/L Chloride 108 H (98-107) mmol/L Carbon Dioxide 24 (22-30) mmol/L Anion Gap 6 mmol/L BUN 11 (7-17) mg/dL Creatinine 0.57 (0.52-1.04) mg/dL Est GFR (CKD-EPI)AfAm >90 (>60 ml/min/1.73 sqM) Est GFR (CKD-EPI)NonAf >90 (>60 ml/min/1.73 sqM) Glucose 129 H (74-99) mg/dL Calcium 9.2 (8.4-10.2) mg/dL Magnesium 2.0 (1.6-2.3) mg/dL Total Bilirubin 0.7 (0.2-1.3) mg/dL AST 41 H (14-36) U/L ALT 33 (4-34) U/L Alkaline Phosphatase 76 (38-126) U/L Troponin I (0.000-0.034) ng/mL Total Protein 6.8 (6.3-8.2) g/dL Albumin 4.1 (3.5-5.0) g/dL Lipase 161 (23-300) U/L / Range/Units 08:20 WBC (3.8-10.6) k/uL RBC (3.80-5.40) m/uL Hgb (11.4-16.0) gm/dL Hct (34.0-46.0) % MCV (80.0-100.0) fL MCH (25.0-35.0) pg MCHC (31.0-37.0) g/dL RDW (11.5-15.5) % Plt Count (150-450) k/uL Neutrophils % % Lymphocytes % % Monocytes % % Eosinophils % % Basophils % % Neutrophils # (1.3-7.7) k/uL Lymphocytes # (1.0-4.8) k/uL Monocytes # (0-1.0) k/uL Eosinophils # (0-0.7) k/uL Basophils # (0-0.2) k/uL PT (9.0-12.0) sec INR (<1.2) APTT (22.0-30.0) sec D-Dimer (<0.60) mg/L FEU Sodium (137-145) mmol/L Potassium (3.5-5.1) mmol/L Chloride (98-107) mmol/L Carbon Dioxide (22-30) mmol/L Anion Gap mmol/L BUN (7-17) mg/dL Creatinine (0.52-1.04) mg/dL Est GFR (CKD-EPI)AfAm (>60 ml/min/1.73 sqM) Est GFR (CKD-EPI)NonAf (>60 ml/min/1.73 sqM) Glucose (74-99) mg/dL Calcium (8.4-10.2) mg/dL Magnesium (1.6-2.3) mg/dL Total Bilirubin (0.2-1.3) mg/dL AST (14-36) U/L ALT (4-34) U/L Alkaline Phosphatase (38-126) U/L Troponin I <0.012 (0.000-0.034) ng/mL Total Protein (6.3-8.2) g/dL Albumin (3.5-5.0) g/dL Lipase (23-300) U/L Disposition Clinical Impression: Chest pain Disposition: ADMITTED IP TO THIS HOSP Condition: Stable Is patient prescribed a controlled substance at d/c from ED?: No Referrals: Litzy Lawrence MD [Primary Care Provider] - 1-2 days Decision to Admit Reason: Admit from EC Decision Date: 01/09/20 Decision Time: 09:37
[2020-01-09 08:39] LABS: Basophils # (A) 0.1 k/uL (0-0.2); Basophils % (A) 1 %; Eosinophils # (A) 0.3 k/uL (0-0.7); Eosinophils % (A) 4 %; HCT 42.8 % (34.0-46.0); HGB 14.2 gm/dL (11.4-16.0); Lymphocytes # (A) 1.2 k/uL (1.0-4.8); Lymphocytes % (A) 18 %; MCH 30.2 pg (25.0-35.0); MCHC 33.2 g/dL (31.0-37.0); MCV 91.1 fL (80.0-100.0); Mean Platelet Volume 6.9; Monocytes # (A) 0.4 k/uL (0-1.0); Monocytes % (A) 5 %; Neutrophils # (A) 4.8 k/uL (1.3-7.7); Neutrophils % (A) 71 %; Platelet Count 275 k/uL (150-450); RDW 12.7 % (11.5-15.5); WBC 6.8 k/uL (3.8-10.6)
[2020-01-09 08:49] LABS: ALT 33 U/L (4-34); AST 41 U/L (14-36); African American GFR (CKD) >90 (>60 ml/min/1.73 sqM); Albumin 4.1 g/dL (3.5-5.0); Alkaline Phosphatase 76 U/L (38-126); Anion Gap 6 mmol/L; Blood Urea Nitrogen 11 mg/dL (7-17); Calcium 9.2 mg/dL (8.4-10.2); Carbon Dioxide 24 mmol/L (22-30); Chloride 108 mmol/L (98-107); Glucose 129 mg/dL (74-99); Non-African American GFR(CKD) >90 (>60 ml/min/1.73 sqM); Potassium 4.3 mmol/L (3.5-5.1); Sodium 138 mmol/L (137-145); Total Bilirubin 0.7 mg/dL (0.2-1.3); Total Protein 6.8 g/dL (6.3-8.2)
[2020-01-09 08:50] LABS: D-Dimer 0.29 mg/L FEU (<0.60); INR 0.9 (<1.2); Partial Thromboplastin Time 23.4 sec (22.0-30.0); Prothrombin Time 9.6 sec (9.0-12.0)
--- NOTE | 2020-01-09 08:59 | XR ---
EXAMINATION TYPE: XR chest 2V DATE OF EXAM: 01/09/2020 CLINICAL HISTORY: Chest pain TECHNIQUE: Frontal and lateral views of the chest are obtained. COMPARISON: Chest radiograph 09/04/2016 FINDINGS: The cardiomediastinal silhouette is within normal limits for size. Pulmonary vasculature i s normal. There is no focal air space opacity, pleural effusion, or pneumothorax seen. The osseous st ructures are intact. IMPRESSION: No acute cardiopulmonary process.
[2020-01-09] MEDS ORDERED: ASPIRIN 325 MG TAB PO STA (09:34)
[2020-01-09] MEDS ORDERED: MORPHINE SULFATE 4 MG/ML SYRINGE IV PRN (09:37)
[2020-01-09] MEDS ORDERED: ACETAMINOPHEN TAB 325 MG TAB PO PRN (09:37)
[2020-01-09] MEDS ORDERED: NALOXONE 0.4 MG/ML 1 ML VIAL IV PRN (09:37)
[2020-01-09] MEDS ORDERED: NITROGLYCERIN SL TABS 0.4 MG TAB SUBLINGUAL PRN (09:38)
--- NOTE | 2020-01-09 13:58 | P.CRDCN ---
History of Present Illness History of present illness: HISTORY OF PRESENTING ILLNESS This is a pleasant 59-year-old female past medical history significant for hypothyroidism. She has no prior history of coronary artery disease and does not follow with a personal lines appraiser for any reason. We have been asked to see in consultation for chest pain. Earlier today the patient was lifting her dog when she had an acute onset of discomfort in the left precordial region described as sharp and radiated to the left shoulder and was reproducible. Her pain continues to be repaired on deep palpation. She denies associated shortness of breath, dizziness, palpitations, nausea, vomiting or diaphoresis. DIAGNOSTICS EKG reveals sinus mechanism with no acute ischemic changes.. Chest xray negative for an acute cardiopulmonary process. Laboratory reviewed, CBC unremarkable, d-dimer 0.29, sodium 138, potassium 4.3, creatinine 0.57, cardiac enzymes negative 2 and magnesium 2.0.. Current cardiac medications include aspirin 81 mg daily. REVIEW OF SYSTEMS At the time of my exam: CONSTITUTIONAL: Denies fever or chills. CARDIOVASCULAR: Denies chest pain, shortness of breath, orthopnea, PND or palpitations. RESPIRATORY: Denies cough. GASTROINTESTINAL: Denies abdominal pain, diarrhea, constipation, nausea or vomiting. MUSCULOSKELETAL: Denies myalgias. NEUROLOGIC: Denies numbness, tingling or weakness. ENDOCRINE: Denies fatigue, weight change, polydipsia or polyurina. GENITOURINARY: Denies burning, hematuria or urgency with micturation. HEMATOLOGIC: Denies history of anemia or bleeding. PHYSICAL EXAMINATION Blood pressure 104/62 heart rate 50 afebrile and maintaining oxygen saturation on room air. CONSTITUTIONAL: No apparent distress. HEENT: Head is normocephalic. Pupils are equal, round. Sclerae anicteric. Mucous membranes of the mouth are moist. No JVD. No carotid bruit. CHEST EXAMINATION: Lungs are clear to auscultation. No chest wall tenderness is noted on palpation or with deep breathing. HEART EXAMINATION: Regular rate and rhythm. S1, S2 heard. No murmurs, gallops or rub. ABDOMEN: Soft, nontender. Positive bowel sounds. EXTREMITIES: 2+ peripheral pulses, no lower extremity edema and no calf tenderness. NEUROLOGIC EXAMINATION: Patient is awake, alert and oriented x3. ASSESSMENT Chest pain, atypical and reproducible. PLAN An acute coronary event has been ruled out. Her pain is atypical for angina and reproducible. Related to musculoskeletal strain. No further cardiac workup. She may be discharged home from a cardiac perspective. Thank you kindly for this consultation. Nurse Practitioner note has been reviewed, I agree with a documented findings and plan of care. Patient was seen and examined. Past Medical History Past Medical History: CVA/TIA, Thyroid Disorder Additional Past Medical History / Comment(s): 2012 WHEN HAS CVA/TIA ALSO WAS PLACED ON THYROID MEDS BUT FEW MONTHS LATER EVERYTHING RETURNED TO NORMAL AND NO LONGER NEEDED MEDS, UTI. no longer on thyroid med 2019 History of Any Multi-Drug Resistant Organisms: None Reported Past Surgical History: Section, Cholecystectomy Past Anesthesia/Blood Transfusion Reactions: No Reported Reaction Additional Past Anesthesia/Blood Transfusion Reaction / Comment(s): CARMEN THOMAS Past Psychological History: No Psychological Hx Reported Smoking Status: Never smoker Past Alcohol Use History: Occasional Past Drug Use History: None Reported - Past Family History Mother Family Medical History: Dementia Additional Family Medical History / Comment(s): ALZHEIMERS, "STOMACH PROBLEMS", AAA Father Family Medical History: COPD, Coronary Artery Disease (CAD), Diabetes Mellitus Additional Family Medical History / Comment(s): CABG Medications and Allergies Home Medications Medication Instructions Recorded Confirmed Type Aspirin EC [Ecotrin Low Dose] 81 mg PO DAILY 11/19/17 01/09/20 History Allergies Allergy/AdvReac Type Severity Reaction Status Date / Time No Known Allergies Allergy Verified 01/09/20 10:45 Physical Exam Vitals: Vital Signs Temp Pulse Pulse Resp BP BP Pulse Ox 01/09/20 12:15 50 L 16 01/09/20 12:10 97.8 F 50 L 16 104/62 95 01/09/20 11:32 97.8 F 51 L 18 114/72 99 01/09/20 09:15 50 L 18 126/70 99 01/09/20 07:55 98.1 F 72 18 142/89 99 Intake and Output 01/08/20 01/09/20 01/09/20 22:59 06:59 14:59 Intake Total 300 Balance 300 Intake: Oral 300 Other: Voiding Method Toilet Weight 99.79 kg Results 01/09/20 08:20 01/09/20 08:20 Cardiac Enzymes 01/09/20 01/09/20 01/09/20 Range/Units 08:20 08:20 11:15 AST 41 H (14-36) U/L Troponin I <0.012 <0.012 (0.000-0.034) ng/mL Coagulation 01/09/20 Range/Units 08:20 PT 9.6 (9.0-12.0) sec APTT 23.4 (22.0-30.0) sec CBC 01/09/20 Range/Units 08:20 WBC 6.8 (3.8-10.6) k/uL RBC 4.70 (3.80-5.40) m/uL Hgb 14.2 (11.4-16.0) gm/dL Hct 42.8 (34.0-46.0) % Plt Count 275 (150-450) k/uL Comprehensive Metabolic Panel 01/09/20 Range/Units 08:20 Sodium 138 (137-145) mmol/L Potassium 4.3 (3.5-5.1) mmol/L Chloride 108 H (98-107) mmol/L Carbon Dioxide 24 (22-30) mmol/L BUN 11 (7-17) mg/dL Creatinine 0.57 (0.52-1.04) mg/dL Glucose 129 H (74-99) mg/dL Calcium 9.2 (8.4-10.2) mg/dL AST 41 H (14-36) U/L ALT 33 (4-34) U/L Alkaline Phosphatase 76 (38-126) U/L Total Protein 6.8 (6.3-8.2) g/dL Albumin 4.1 (3.5-5.0) g/dL Current Medications Generic Name Dose Route Start Last Admin Trade Name Freq PRN Reason Stop Dose Admin Acetaminophen 650 mg 01/09/20 09:37 Tylenol Tab PO Q6HR PRN Mild Pain or Fever > 100.5 Aspirin 325 mg 01/10/20 09:00 Aspirin PO DAILY LORRIE Morphine Sulfate 4 mg 01/09/20 09:37 01/09/20 11:41 Morphine Sulfate (Inj) IV 4 mg Q4HR PRN Administration Severe Pain Naloxone HCl 0.2 mg 01/09/20 09:37 Narcan IV Q2M PRN Opioid Reversal Nitroglycerin 0.4 mg 01/09/20 09:38 Nitrostat SUBLINGUAL Q5M PRN Chest Pain Intake and Output 01/08/20 01/09/20 01/09/20 22:59 06:59 14:59 Intake Total 300 Balance 300 Intake: Oral 300 Other: Voiding Method Toilet Weight 99.79 kg Patient Weight 01/10/20 06:59 Weight 99.79 kg 01/09/20 08:20 01/09/20 08:20
[2020-01-09 15:16] VITALS: BMI 44.4
[2020-01-09] MEDS ORDERED: traMADol 50 MG TAB PO PRN (16:42)
--- NOTE | 2020-01-09 16:50 | P.HPIM ---
History of Present Illness H&P Date: 01/09/20 Chief Complaint: Chest pain 59-year-old female with PMH of CVA presents to the ED for chest pain. Patient reports picking up 10 pound bag this morning followed by her 8 pound dog. She experiences sudden onset of left-sided anterior chest discomfort that radiated to her back. Pain is exacerbated with movement of her left shoulder. She denied any diaphoresis or nausea and vomiting. She denied any headache, lower extremity edema, fever or chills, cough, shortness of breath, palpitations, changes in urination or bowel habits. No changes in appetite or weight. Patien t rates the pain a 9 out of 10 in severity. She denies any dizziness, numbness/weakness/tingling of the extremities. She reports a history of CVA for which she occasionally takes aspirin. She does not smoke cigarettes. In the ED, her vital signs have been stable. CBC was unremarkable. D-dimer was negative. INR was negative. CMP showed chloride of 108, glucose of 129, AST 41. Troponin was less than 0.0123, EKG showing sinus bradycardia. Lipase was negative. Chest x-ray was negative. Patient is admitted for chest pain, rule out acute coronary syndrome and cardio to consult. Review of Systems Pertinent positives and negatives as discussed in HPI, a complete review of systems was performed and all other systems are negative. Past Medical History Past Medical History: CVA/TIA, Thyroid Disorder Additional Past Medical History / Comment(s): 2012 WHEN HAS CVA/TIA ALSO WAS PLACED ON THYROID MEDS BUT FEW MONTHS LATER EVERYTHING RETURNED TO NORMAL AND NO LONGER NEEDED MEDS, UTI. no longer on thyroid med 2019 History of Any Multi-Drug Resistant Organisms: None Reported Past Surgical History: Section, Cholecystectomy Past Anesthesia/Blood Transfusion Reactions: No Reported Reaction Additional Past Anesthesia/Blood Transfusion Reaction / Comment(s): CLAUSTERPHOBIA Past Psychological History: No Psychological Hx Reported Smoking Status: Never smoker Past Alcohol Use History: Occasional Past Drug Use History: None Reported - Past Family History Mother Family Medical History: Dementia Additional Family Medical History / Comment(s): ALZHEIMERS, "STOMACH PROBLEMS", AAA Father Family Medical History: COPD, Coronary Artery Disease (CAD), Diabetes Mellitus Additional Family Medical History / Comment(s): CABG Medications and Allergies Home Medications Medication Instructions Recorded Confirmed Type Aspirin EC [Ecotrin Low Dose] 81 mg PO DAILY 11/19/17 01/09/20 History Allergies Allergy/AdvReac Type Severity Reaction Status Date / Time No Known Allergies Allergy Verified 01/09/20 10:45 Physical Exam Vitals: Vital Signs Temp Pulse Pulse Resp BP BP Pulse Ox 01/09/20 16:12 97.8 F 56 L 16 98/64 99 01/09/20 15:00 56 L 16 01/09/20 12:15 50 L 16 01/09/20 12:10 97.8 F 50 L 16 104/62 95 01/09/20 11:32 97.8 F 51 L 18 114/72 99 01/09/20 09:15 50 L 18 126/70 99 01/09/20 07:55 98.1 F 72 18 142/89 99 Intake and Output 01/09/20 01/09/20 01/09/20 06:59 14:59 22:59 Intake Total 300 Balance 300 Intake: Oral 300 Other: Voiding Method Toilet Toilet Weight 99.79 kg 99.79 kg General: [non toxic], [no distress], [appears at stated age] Derm: [warm], [dry] Head: [atraumatic], [normocephalic], [symmetric] Eyes: [EOMI], [no lid lag], [anicteric sclera] Mouth: [no lip lesion], [mucus membranes moist] Cardiovascular: [S1S2 reg], [no murmur], [positive posterior tibial pulse bilateral], Lungs: [CTA bilateral], [no rhonchi, no rales] , [no accessory muscle use] Abdominal: [soft], [ nontender to palpation], [no guarding], [no appreciable organomegaly] Ext: [no gross muscle atrophy], [no edema], [no contractures], tenderness to palpation of the anterior chest wall with limited range of motion of the left shoulder due to pain Neuro: [ CN II-XI grossly intact], [no focal neuro deficits] Psych: [Alert], [oriented], [appropriate affect] Results CBC & Chem 7: 01/09/20 08:20 01/09/20 08:20 Labs: Abnormal Lab Results - Last 24 Hours (Table) 01/09/20 Range/Units 08:20 Chloride 108 H (98-107) mmol/L Glucose 129 H (74-99) mg/dL AST 41 H (14-36) U/L Thrombosis Risk Factor Assmnt - Choose All That Apply Any of the Below Risk Factors Present?: Yes Each Factor Represents 1 point: Age 41-60 years, Obesity (BMI >25) Other Risk Factors: No Thrombosis Risk Factor Assessment Total Risk Factor Score: 2 Thrombosis Risk Factor Assessment Level: Low Risk Assessment and Plan Assessment: Left shoulder pain Hyperglycemia Elevated AST History of CVA Acute coronary syndrome has been ruled out. D-dimer negative and low concerns for PE. Cardiology has been consulted and cleared the patient for discharge. E chocardiogram has been ordered and is pending read. Left shoulder pain is likely musculoskeletal in nature. Start Toradol as needed along with tramadol. Follow shoulder x-ray. Follow A1c. Follow lipid panel. Continue aspirin. Patient will likely benefit from statin on discharge. DVT prophylaxis: [Heparin] Discussed with: [Patient] Anticipated discharge: [1-2 days] Anticipated discharge place: [Home] A total of [35] minutes was spent on the care of this complex patient more than 50% of the time was spent in counseling and care coordination. Patient will be full code. Attempted to stand patient up but complains of severe shoulder pain. Anticipate DC home tomorrow with better control of her shoulder pain.
[2020-01-09] MEDS: KETOROLAC 15 MG/ML 1 ML VIAL IVP PRN (17:37)
--- NOTE | 2020-01-09 17:53 | ECHOF ---
Referral Reason:CP MEASUREMENTS -------- HEIGHT: 149.9 cm WEIGHT: 99.8 kg BP: 104/62 RVIDd: 2.8 cm (< 3.3) IVSd: 1.1 cm (0.6 - 1.1) LVIDd: 4.1 cm (3.9 - 5.3) LVPWd: 1.1 cm (0.6 - 1.1) IVSs: 1.7 cm LVIDs: 2.4 cm LVPWs: 1.6 cm LA Diam: 3.4 cm (2.7 - 3.8) LAESV Index (A-L): 20.14 ml/m Ao Diam: 2.7 cm (2.0 - 3.7) AV Cusp: 1.9 cm (1.5 - 2.6) MV EXCURSION: 13.666 mm (> 18.000) MV EF SLOPE: 94 mm/s (70 - 150) EPSS: 0.5 cm MV E Arya: 0.93 m/s MV DecT: 230 ms MV A Arya: 0.85 m/s MV E/A Ratio: 1.10 RAP: 5.00 mmHg RVSP: 31.41 mmHg FINDINGS -------- Sinus rhythm. This was a technically adequate study. LV size, wall thickness and systolic function are normal, with an EF greater than 55%. The left renzo tricular size is normal. The right ventricle is normal in size. Normal LA size by volume 22+/-6 ml/m2. The right atrial size is normal. Interatrial and interventricular septum intact. The aortic valve is trileaflet, and appears structurally normal. No aortic stenosis or regurgitation. The mitral valve is normal. There is trace to mild mitral regurgitation. The tricuspid valve appears structurally normal. Mild tricuspid regurgitation present. Right vent ricular systolic pressure is normal at < 35 mmHg. Trace/mild (physiologic) pulmonic regurgitation. The aortic root size is normal. Normal inferior vena cava with normal inspiratory collapse consistent with estimated right atrial pre ssure of 5 mmHg. There is no pericardial effusion. CONCLUSIONS -------- 1. LV size, wall thickness and systolic function are normal, with an EF greater than 55%. 2. Normal LA size by volume 22+/-6 ml/m2. 3. The aortic valve is trileaflet, and appears structurally normal. No aortic stenosis or regurgitati on. 4. There is trace to mild mitral regurgitation. 5. Mild tricuspid regurgitation present. 6. Trace/mild (physiologic) pulmonic regurgitation. 7. There is no pericardial effusion. [employer] MANAGER: Shayy Amaya RDCS
--- NOTE | 2020-01-09 18:04 | XR ---
EXAMINATION TYPE: XR shoulder complete LT DATE OF EXAM: 01/09/2020 COMPARISON: NONE HISTORY: 59-year-old female with left shoulder pain TECHNIQUE: 3 views FINDINGS: Moderate degenerative joint space narrowing and marginal spurring at the acromioclavicular joint. Sub acromial space is preserved. No tendinous or bursal calcifications. No acute fracture, subluxation, d islocation. Visualized left hemithorax is clear. IMPRESSION: Moderate left AC joint OA. No acute osseous abnormality seen.
[2020-01-09] MEDS ORDERED: HEPARIN SODIUM,PORCINE 5,000 UNIT/ML 1 ML VIAL SQ SCH (21:00)
[2020-01-10] MEDS: KETOROLAC 15 MG/ML 1 ML VIAL IVP PRN ×2 (01:06→09:08)
[2020-01-10 03:25] VITALS: PULSE 58; RESP 18
[2020-01-10 04:30] LABS: Cholesterol 222 mg/dL (<200); HDL Cholesterol 51 mg/dL (40-60); LDL Cholesterol,Calculated 147 mg/dL (0-99); Triglycerides 122 mg/dL (<150)
[2020-01-10 08:18] VITALS: BP 112/69; TEMP 97.9
[2020-01-10] MEDS ORDERED: ASPIRIN 325 MG TAB PO SCH (09:00)
[2020-01-10] MEDS ORDERED: ASPIRIN 81 MG PO SCH (09:00)
--- NOTE | 2020-01-10 09:22 | P.DS ---
Providers Date of admission: 01/09/20 09:39 Expected date of discharge: 01/10/20 Attending physician: Mackenzie Hooks MD Consults: 01/09/20 09:38 Consult Physician Routine Consulting Provider: Rebel Allen Consult Reason/Comments: CP Do you want consulting provider notified?: Yes Primary care physician: Litzy Lawrence Hospital Course: Discharge Diagnosis: Left shoulder strain, possible biceps tendonitis TIA Dyslipidemia Morbid obesity with BMI 44.4 Hospital Course: Patient is a 59-year-old female with a past medical history of TIA who presented to the emergency department secondary to chest pain. This change was reproducible and associated with movements of her left arm. It occurred after e ating a heavy bag and her dog. She underwent an extensive evaluation. Vital signs within normal limits. Initial troponin was negative. She is minute his chest pain onset. She was seen by cardiology. She underwent an echocardiogram which showed preserved ejection fraction with an EF of 55-60%. She was cleared by cardiology for discharge. She continued to have significant left shoulder pain. She was started on Toradol and tramadol. Her shoulder pain improved. She was determined stable for discharge home. She will alternate with Motrin and tramadol. She'll also alternate heat and ice. She'll follow with Dr. Lawrence early next week to ensure that the pain is getting better. She is aware that her cholesterol is high and she wishes to proceed with diet modifications at this time, but is aware of the need for follow-up. Patient seen and examined at bedside. No shortness of breath. Pain is improving. She is able to do more with her left arm. Vital signs reviewed and stable. General: non toxic, no distress, appears at stated age Derm: warm, dry Head: atraumatic, normocephalic, symmetric Eyes: EOMI, no lid lag, anicteric sclera Mouth: no lip lesion, mucus membranes moist Cardiovascular: S1S2 reg, no murmur, positive posterior tibial pulse bilateral, Lungs: CTA bilateral, no rhonchi, no rales , no accessory muscle use Abdominal: soft, nontender to palpation, no guarding, no appreciable organomegaly Ext: no gross muscle atrophy, no edema, no contractures, negative empty can test, pain to palpation over left sternal area, no difficulty with internal and external rotation at the shoulder, intact abduction and abduction. Positive biceps tendon pain. Neuro: CN II-XI grossly intact, no focal neuro deficits Psych: Alert, oriented, appropriate affect A total of 25 minutes of time were spent preparing this complex discharge summary . Patient Condition at Discharge: Stable Plan - Discharge Summary New Discharge Prescriptions: New Ibuprofen [Motrin] 800 mg PO Q8H PRN #30 tab PRN Reason: Pain traMADol HCl [Ultram] 50 mg PO Q8H PRN #21 tab PRN Reason: Moderate Pain Continue Aspirin EC [Ecotrin Low Dose] 81 mg PO DAILY Discharge Medication List Aspirin EC [Ecotrin Low Dose] 81 mg PO DAILY 11/19/17 [History] Ibuprofen [Motrin] 800 mg PO Q8H PRN #30 tab 01/10/20 [Rx] traMADol HCl [Ultram] 50 mg PO Q8H PRN #21 tab 01/10/20 [Rx] Follow up Appointment(s)/Referral(s): Litzy Lawrence MD [Primary Care Provider] - 1-2 days (office closed whis Sunday AM/ call to make a post hospital follow up) Patient Instructions/Handouts: Chest Pain (GEN) Activity/Diet/Wound Care/Special Instructions: Activity: rest left should Diet: regular Discharge/Stand Alone Forms: Work/Release Restrictions Form Discharge Disposition: HOME SELF-CARE
[2020-01-10 13:29] LABS: Hemoglobin A1C 5.7 % (4.0-6.0)
== END 2020-01-10 10:26 | disposition home or self-care (01) ==
LOC: EC 07:39 → 3NCARDOBS 09:39
PROVIDERS: ADMIT Family Medicine; ATTEND Family Medicine
DX: S46.912A Strain of unspecified muscle, fascia and tendon at shoulder and upper arm level, left arm, initial encounter (principal); X50.0XXA Overexertion from strenuous movement or load, initial encounter; Z86.73 Personal history of transient ischemic attack (TIA), and cerebral infarction without residual deficits; E78.5 Hyperlipidemia, unspecified; Z68.41 Body mass index [BMI] 40.0-44.9, adult; E66.01 Morbid (severe) obesity due to excess calories; Z79.82 Long term (current) use of aspirin; R00.1 Bradycardia, unspecified; R61 Generalized hyperhidrosis; R73.9 Hyperglycemia, unspecified; R74.0 Nonspecific elevation of levels of transaminase and lactic acid dehydrogenase [LDH]; Z86.39 Personal history of other endocrine, nutritional and metabolic disease; Z90.49 Acquired absence of other specified parts of digestive tract; Z87.440 Personal history of urinary (tract) infections; Z82.0 Family history of epilepsy and other diseases of the nervous system; Z81.8 Family history of other mental and behavioral disorders; Z83.79 Family history of other diseases of the digestive system; Z83.3 Family history of diabetes mellitus; Z82.5 Family history of asthma and other chronic lower respiratory diseases; Z82.49 Family history of ischemic heart disease and other diseases of the circulatory system
CPT/HCPCS: 96372; 96375; 96376 ×2; 96374; 99285; 36415; 93005; 93306; 85379; 80061; 80053; 83690; 83735; 84484; 85025; 85610; 85730; 83036; 73030; 71046; G0378 ×2; J2270; J1644; J1885 ×2

== ENCOUNTER 2020-08-20 09:05 | Emergency (ER) | payer BC ==
[2020-08-20 09:30] VITALS: RESP 18
[2020-08-20] MEDS ORDERED: KETOROLAC 15 MG/ML 1 ML VIAL IVP STA (09:41)
[2020-08-20] MEDS ORDERED: CYANOCOBALAMIN 1,000 MCG/ML 1 ML VIAL IM STA (10:11)
[2020-08-20] MEDS ORDERED: SODIUM CHLORIDE 0.9% 500 ML 500 ML IV ONE (10:11)
[2020-08-20] MEDS ORDERED: DEXAMETHASONE SOD PHOSPHATE 4 MG/ML 1 ML VIAL IV STA (10:12)
[2020-08-20] MEDS ORDERED: SODIUM CHLORIDE 0.9% 1,000 ML IV SCH (10:15)
[2020-08-20 10:22] LABS: Basophils % (A) 0 %; Eosinophils % (A) 1 %; HGB 14.3 gm/dL (11.4-16.0); Lymphocytes % (A) 20 %; MCH 30.5 pg (25.0-35.0); MCHC 34.1 g/dL (31.0-37.0); MCV 89.5 fL (80.0-100.0); Mean Platelet Volume 6.6; Monocytes # (A) 0.2 k/uL (0-1.0); Monocytes % (A) 5 %; Neutrophils # (A) 3.4 k/uL (1.3-7.7); Neutrophils % (A) 72 %; Platelet Count 263 k/uL (150-450); RBC 4.69 m/uL (3.80-5.40); RDW 12.8 % (11.5-15.5); WBC 4.7 k/uL (3.8-10.6)
[2020-08-20 10:35] LABS: D-Dimer 0.3 mg/L FEU (<0.60); INR 0.9 (<1.2); Partial Thromboplastin Time 24.8 sec (22.0-30.0); Prothrombin Time 9.9 sec (9.0-12.0)
[2020-08-20 10:39] LABS: ALT 44 U/L (4-34); AST 59 U/L (14-36); African American GFR (CKD) >90 (>60 ml/min/1.73 sqM); Albumin 4.1 g/dL (3.5-5.0); Alkaline Phosphatase 93 U/L (38-126); Anion Gap 7 mmol/L; Blood Urea Nitrogen 8 mg/dL (7-17); Calcium 8.9 mg/dL (8.4-10.2); Carbon Dioxide 26 mmol/L (22-30); Chloride 104 mmol/L (98-107); Glucose 115 mg/dL (74-99); LDH 760 U/L (313-618); Non-African American GFR(CKD) >90 (>60 ml/min/1.73 sqM); Potassium 4.1 mmol/L (3.5-5.1); Sodium 137 mmol/L (137-145); Total Bilirubin 0.6 mg/dL (0.2-1.3); Total Protein 7.1 g/dL (6.3-8.2)
--- NOTE | 2020-08-20 10:53 | XR ---
EXAMINATION TYPE: XR chest 1V portable DATE OF EXAM: 08/20/2020 HISTORY: Shortness of breath. COMPARISON: 01/09/2020 TECHNIQUE: Single view of the chest is submitted. FINDINGS: Demonstrated are scattered senescent parenchymal change. There is no evidence for focal infiltrate. The heart is stable. Hilar and mediastinal structures are within normal limits. Degenerative changes are seen of the dorsal spine. IMPRESSION: 1. Chronic changes without evidence for acute pulmonary disease.
[2020-08-20] MEDS ORDERED: ACETAMINOPHEN TAB 325 MG TAB PO STA (10:58)
[2020-08-20] MEDS ORDERED: ONDANSETRON 4 MG/2 ML VIAL IVP STA (10:59)
[2020-08-20 11:25] LABS: C Reactive Protein 36.1 mg/L (<10.0)
--- NOTE | 2020-08-20 11:37 | ED ---
SOB HPI - General Chief Complaint: Shortness of Breath Stated Complaint: COVID +, SOB, Fever Time Seen by Provider: 08/20/20 09:11 Source: patient Mode of arrival: wheelchair Limitations: no limitations - History of Present Illness Initial Comments: 60-year-old presenting to the emergency department today for chief complaint of shortness of breath. Patient states that she was diagnosed with coving approximately 7 days ago she states she has had symptoms for 9-10 days. Patient states she has had fevers chills general malaise bodyaches and shortness of breath. Patient states she is to monitor her oxygen at home at times it drops down to 80%. She is unsure if that pulse ox is accurate. Patient denies any pleuritic chest pain, chest pressure leg swelling hemoptysis she denies any neck stiffness, vomiting. Pt denies nausea but states her taste has changed and she barely has an appetite. Patient denies additional complaints for concerns. Upon arrival she is 96% on RA and she does not appear in distress. - Related Data Home Medications Medication Instructions Recorded Confirmed Aspirin EC [Ecotrin Low Dose] 81 mg PO DAILY 11/19/17 08/20/20 Albuterol Sulfate [Proair Hfa] 1 - 2 puff INHALATION RT-Q6H PRN 08/20/20 08/20/20 Famotidine [Pepcid] 20 mg PO BID PRN 08/20/20 08/20/20 Allergies Allergy/AdvReac Type Severity Reaction Status Date / Time No Known Allergies Allergy Verified 08/20/20 12:03 Review of Systems ROS Statement: Those systems with pertinent positive or pertinent negative responses have been documented in the HPI. ROS Other: All systems not noted in ROS Statement are negative. Past Medical History Past Medical History: CVA/TIA, Thyroid Disorder Additional Past Medical History / Comment(s): 2012 WHEN HAS CVA/TIA ALSO WAS PLACED ON THYROID MEDS BUT FEW MONTHS LATER EVERYTHING RETURNED TO NORMAL AND NO LONGER NEEDED MEDS, UTI. no longer on thyroid med 2020 History of Any Multi-Drug Resistant Organisms: None Reported Past Surgical History: Section, Cholecystectomy Past Anesthesia/Blood Transfusion Reactions: No Reported Reaction Additional Past Anesthesia/Blood Transfusion Reaction / Comment(s): CLAUSTERPHOBIA Past Psychological History: No Psychological Hx Reported Smoking Status: Never smoker Past Alcohol Use History: Occasional Past Drug Use History: None Reported - Past Family History Mother Family Medical History: Dementia Additional Family Medical History / Comment(s): ALZHEIMERS, "STOMACH PROBLEMS", AAA Father Family Medical History: COPD, Coronary Artery Disease (CAD), Diabetes Mellitus Additional Family Medical History / Comment(s): CABG General Exam - General Exam Comments Initial Comments: General: The patient is awake and alert, in no distress, and does not appear a cutely ill. Eye: Pupils are equal, round and reactive to light, extra-ocular movements are intact. No nystagmus. There is normal conjunctiva bilaterally. No signs of icterus. Ears, nose, mouth and throat: There are moist mucous membranes and no oral lesions. Neck: The neck is supple, there is no tenderness or JVD. Cardiovascular: There is a regular rate and rhythm. No murmur, rub or gallop is appreciated. Respiratory: Lungs are clear to auscultation, respirations are non-labored, breath sounds are equal. No wheezes, stridor, rales, or rhonchi. Gastrointestinal: Soft, non-distended, non-tender abdomen without masses or organomegaly noted. There is no rebound or guarding present. Musculoskeletal: Normal ROM, no tenderness. Strength 5/5. Sensation intact. Radial pulses equal bilaterally 2+. Neurological: A&O x 3. CN II-XII intact, There are no obvious motor or sensory deficits. Coordination appears grossly intact. Speech is normal. Skin: Skin is warm and dry and no rashes or lesions are noted. No LE edema, no calf pain or swelling. Psychiatric: Cooperative, appropriate mood & affect, normal judgment. Limitations: no limitations Course Vital Signs 08/20/20 08/20/20 08/20/20 09:17 09:28 10:21 Temperature 100.4 F H Pulse Rate 82 73 Respiratory 19 18 18 Rate Blood Pressure 118/81 112/72 O2 Sat by Pulse 96 96 Oximetry 08/20/20 08/20/20 08/20/20 11:00 12:00 13:00 Temperature Pulse Rate 71 72 Respiratory 18 18 18 Rate Blood Pressure 102/60 O2 Sat by Pulse 96 96 96 Oximetry 08/20/20 13:55 Temperature 98.3 F Pulse Rate 71 Respiratory 18 Rate Blood Pressure 95/69 O2 Sat by Pulse 96 Oximetry Medical Decision Making - Medical Decision Making Labs stable. Dimer (-). CXR no PNA. Patient meets criteria for monoclonal antibodies. Patient symptoms improved significantly after symptomatically treated in the ER. patient is agreeable to discharge with PCP f/u and reutnr for wrosneing symptoms. pt discharged appearing well. - Lab Data Result diagrams: 08/20/20 10:14 08/20/20 10:14 Lab Results 08/20/20 08/20/20 08/20/20 Range/Units 10:14 10:14 10:14 WBC 4.7 (3.8-10.6) k/uL RBC 4.69 (3.80-5.40) m/uL Hgb 14.3 (11.4-16.0) gm/dL Hct 42.0 (34.0-46.0) % MCV 89.5 (80.0-100.0) fL MCH 30.5 (25.0-35.0) pg MCHC 34.1 (31.0-37.0) g/dL RDW 12.8 (11.5-15.5) % Plt Count 263 (150-450) k/uL MPV 6.6 Neutrophils % 72 % Lymphocytes % 20 % Monocytes % 5 % Eosinophils % 1 % Basophils % 0 % Neutrophils # 3.4 (1.3-7.7) k/uL Lymphocytes # 1.0 (1.0-4.8) k/uL Monocytes # 0.2 (0-1.0) k/uL Eosinophils # 0.0 (0-0.7) k/uL Basophils # 0.0 (0-0.2) k/uL PT 9.9 (9.0-12.0) sec INR 0.9 (<1.2) APTT 24.8 (22.0-30.0) sec D-Dimer 0.30 (<0.60) mg/L FEU Sodium 137 (137-145) mmol/L Potassium 4.1 (3.5-5.1) mmol/L Chloride 104 (98-107) mmol/L Carbon Dioxide 26 (22-30) mmol/L Anion Gap 7 mmol/L BUN 8 (7-17) mg/dL Creatinine 0.58 (0.52-1.04) mg/dL Est GFR (CKD-EPI)AfAm >90 (>60 ml/min/1.73 sqM) Est GFR (CKD-EPI)NonAf >90 (>60 ml/min/1.73 sqM) Glucose 115 H (74-99) mg/dL Plasma Lactic Acid August (0.7-2.0) mmol/L Calcium 8.9 (8.4-10.2) mg/dL Magnesium 2.0 (1.6-2.3) mg/dL Total Bilirubin 0.6 (0.2-1.3) mg/dL AST 59 H (14-36) U/L ALT 44 H (4-34) U/L Alkaline Phosphatase 93 (38-126) U/L Lactate Dehydrogenase 760 H (313-618) U/L C-Reactive Protein 36.1 H (<10.0) mg/L Total Protein 7.1 (6.3-8.2) g/dL Albumin 4.1 (3.5-5.0) g/dL 08/20/20 Range/Units 10:14 WBC (3.8-10.6) k/uL RBC (3.80-5.40) m/uL Hgb (11.4-16.0) gm/dL Hct (34.0-46.0) % MCV (80.0-100.0) fL MCH (25.0-35.0) pg MCHC (31.0-37.0) g/dL RDW (11.5-15.5) % Plt Count (150-450) k/uL MPV Neutrophils % % Lymphocytes % % Monocytes % % Eosinophils % % Basophils % % Neutrophils # (1.3-7.7) k/uL Lymphocytes # (1.0-4.8) k/uL Monocytes # (0-1.0) k/uL Eosinophils # (0-0.7) k/uL Basophils # (0-0.2) k/uL PT (9.0-12.0) sec INR (<1.2) APTT (22.0-30.0) sec D-Dimer (<0.60) mg/L FEU Sodium (137-145) mmol/L Potassium (3.5-5.1) mmol/L Chloride (98-107) mmol/L Carbon Dioxide (22-30) mmol/L Anion Gap mmol/L BUN (7-17) mg/dL Creatinine (0.52-1.04) mg/dL Est GFR (CKD-EPI)AfAm (>60 ml/min/1.73 sqM) Est GFR (CKD-EPI)NonAf (>60 ml/min/1.73 sqM) Glucose (74-99) mg/dL Plasma Lactic Acid August 1.2 (0.7-2.0) mmol/L Calcium (8.4-10.2) mg/dL Magnesium (1.6-2.3) mg/dL Total Bilirubin (0.2-1.3) mg/dL AST (14-36) U/L ALT (4-34) U/L Alkaline Phosphatase (38-126) U/L Lactate Dehydrogenase (313-618) U/L C-Reactive Protein (<10.0) mg/L Total Protein (6.3-8.2) g/dL Albumin (3.5-5.0) g/dL Disposition Clinical Impression: COVID-19, Dyspnea Disposition: HOME SELF-CARE Condition: Good Instructions (If sedation given, give patient instructions): Coronavirus D isease 2019 (COVID-19) Additional Instructions: Please use medication as discussed. Please follow-up with family doctor in the next 2 days. Please return to emergency room if the symptoms increase or worsen or for any other concerns. Is patient prescribed a controlled substance at d/c from ED?: No Referrals: Litzy Lawrence MD [Primary Care Provider] - 1-2 days Time of Disposition: 13:22
[2020-08-20] MEDS ORDERED: BAMLANIVIMAB 700 MG in SODIUM CHLORIDE 0.9% 50 ML IVPB ONE (12:00)
[2020-08-20 14:09] VITALS: BP 95/69; PULSE 71; TEMP 98.3
[2020-08-20 19:52] LABS: Ferritin 375.6 ng/mL (10.0-291.0)
== END 2020-08-20 13:58 | disposition home or self-care (01) ==
LOC: EC 09:05
DX: U07.1 COVID-19 (principal); Z86.73 Personal history of transient ischemic attack (TIA), and cerebral infarction without residual deficits
CPT/HCPCS: 36415; 93005; 85379; 80053; 82728; 83605; 83615; 83735; 85025; 85610; 85730; 86140; 84145; 71045; 99285; 96374; 96372; 96375 ×3; 96361 ×4; J3420; J1100; J2405; J1885; Q0239

== ENCOUNTER 2021-05-09 13:25 | Emergency (ER) | payer BC ==
[2021-05-09 13:37] VITALS: TEMP 97.9
[2021-05-09] MEDS ORDERED: MORPHINE SULFATE 4 MG/ML SYRINGE IV STA (13:54)
[2021-05-09] MEDS ORDERED: SODIUM CHLORIDE 0.9% 1,000 ML IV STA (13:54)
--- NOTE | 2021-05-09 13:59 | ED ---
General Adult HPI - General Chief complaint: Abdominal Pain Stated complaint: Abdominal Pain Time Seen by Provider: 05/09/21 13:39 Source: patient, EMS, RN notes reviewed, old records reviewed Mode of arrival: EMS Limitations: no limitations - History of Present Illness Initial comments: Well-appearing 60-year-old female presents to the emergency room with 2 hours of epigastric abdominal pain. Patient states that she has a history of this type of pain and was diagnosed with pancreatitis, gallstone. She has had her gallbladder removed but states that after eating a hamburger today around 12:30 she felt a sharp stabbing epigastric pain. She denies any nausea vomiting or diarrhea. Denies any fevers. She states this feels exactly like her pancr eatitis in the past. She is nondrinker. She denies any chest pain or shortness of breath. No nausea vomiting or diarrhea. -: hour(s) (2) Location: abdomen (Epigastric) Radiation: non-radiation Severity scale (1-10): 8 Quality: stabbing, sharp Consistency: constant Improves with: none Worsens with: none Associated Symptoms: denies other symptoms Treatments Prior to Arrival: other (Morphine and Zofran by EMS) - Related Data Home Medications Medication Instructions Recorded Confirmed Aspirin EC [Ecotrin Low Dose] 81 mg PO DAILY 11/19/17 08/20/20 Albuterol Sulfate [Proair Hfa] 1 - 2 puff INHALATION RT-Q6H PRN 08/20/20 08/20/20 Famotidine [Pepcid] 20 mg PO BID PRN 08/20/20 08/20/20 Allergies Allergy/AdvReac Type Severity Reaction Status Date / Time No Known Allergies Allergy Verified 05/09/21 13:37 Review of Systems ROS Statement: Those systems with pertinent positive or pertinent negative responses have been documented in the HPI. ROS Other: All systems not noted in ROS Statement are negative. Past Medical History Past Medical History: CVA/TIA, Thyroid Disorder Additional Past Medical History / Comment(s): 2012 WHEN HAS CVA/TIA ALSO WAS PLACED ON THYROID MEDS BUT FEW MONTHS LATER EVERYTHING RETURNED TO NORMAL AND NO LONGER NEEDED MEDS, UTI. no longer on thyroid med 2020 History of Any Multi-Drug Resistant Organisms: None Reported Past Surgical History: Section, Cholecystectomy Past Anesthesia/Blood Transfusion Reactions: No Reported Reaction Additional Past Anesthesia/Blood Transfusion Reaction / Comment(s): CLAUSTERPHOBIA Past Psychological History: No Psychological Hx Reported Smoking Status: Never smoker Past Alcohol Use History: Occasional Past Drug Use History: None Reported - Past Family History Mother Family Medical History: Dementia Additional Family Medical History / Comment(s): ALZHEIMERS, "STOMACH PROBLEMS", AAA Father Family Medical History: COPD, Coronary Artery Disease (CAD), Diabetes Mellitus Additional Family Medical History / Comment(s): CABG General Exam Limitations: no limitations General appearance: alert, in no apparent distress Head exam: Present: atraumatic, normocephalic, normal inspection Eye exam: Present: normal appearance, EOMI. Absent: scleral icterus, conjunctival injection, periorbital swelling ENT exam: Present: normal exam, normal oropharynx, mucous membranes moist Neck exam: Present: normal inspection, full ROM. Absent: meningismus Respiratory exam: Present: normal lung sounds bilaterally. Absent: respiratory distress, wheezes, rales, rhonchi, stridor Cardiovascular Exam: Present: bradycardia, normal heart sounds. Absent: JVD GI/Abdominal exam: Present: soft, tenderness (Epigastric), hyperactive bowel sounds. Absent: guarding, rebound, rigid, mass Extremities exam: Present: normal inspection, full ROM, normal capillary refill. Absent: tenderness, pedal edema, joint swelling, calf tenderness Back exam: Present: normal inspection, full ROM. Absent: tenderness, CVA tenderness (R), CVA tenderness (L), rash noted Neurological exam: Present: alert, oriented X3 Psychiatric exam: Present: normal affect, normal mood Skin exam: Present: warm, dry, intact, normal color. Absent: rash, cyanosis, diaphoretic, petechiae, pallor Course Vital Signs 05/09/21 05/09/21 13:26 15:43 Temperature 97.9 F Pulse Rate 59 L 64 Respiratory 24 20 Rate Blood Pressure 114/57 130/69 O2 Sat by Pulse 99 94 L Oximetry EKG Findings - EKG Results: EKG: sinus rhythm (Ventricular rate of 65, [place] interval 0.162, QRS 0.82, QTC 0.39 7) Medical Decision Making - Medical Decision Making 60-year-old female presents to the emergency room with 2 hours of epigastric abdominal pain similar to when she was diagnosed with pancreatitis. She does have a history of cholecystectomy. States pain developed after eating a hamburger today around 12:30, sharp stabbing epigastric pain. She denies any nausea vomiting or diarrhea. Denies any fevers. She denies any chest pain or shortness of breath. There is no evidence of leukocytosis. Lactic acid is 2.5 and she was given a liter of normal saline. Troponin is 0.012 and EKG shows no ST elevation. She states that her pain was resolved with Zofran and morphine. Her pain was likely brought on by the hamburger. Patient states that certain foods do trigger her pain and she can normally manage at home. She is agreeable to being discharged home and following up with primary care doctor. Case was discussed with Dr. Gardner who is agreeable to this plan of care. - Lab Data Result diagrams: 05/09/21 14:08 05/09/21 14:08 Lab Results 05/09/21 05/09/21 05/09/21 Range/Units 14:08 14:08 14:08 WBC 7.2 (3.8-10.6) k/uL RBC 4.36 (3.80-5.40) m/uL Hgb 13.9 (11.4-16.0) gm/dL Hct 40.3 (34.0-46.0) % MCV 92.3 (80.0-100.0) fL MCH 31.9 (25.0-35.0) pg MCHC 34.6 (31.0-37.0) g/dL RDW 12.9 (11.5-15.5) % Plt Count 276 (150-450) k/uL MPV 7.0 Neutrophils % 71 % Lymphocytes % 21 % Monocytes % 4 % Eosinophils % 2 % Basophils % 0 % Neutrophils # 5.1 (1.3-7.7) k/uL Lymphocytes # 1.5 (1.0-4.8) k/uL Monocytes # 0.3 (0-1.0) k/uL Eosinophils # 0.2 (0-0.7) k/uL Basophils # 0.0 (0-0.2) k/uL PT 10.3 (9.0-12.0) sec INR 1.0 (<1.2) APTT 23.8 (22.0-30.0) sec Sodium (137-145) mmol/L Potassium (3.5-5.1) mmol/L Chloride (98-107) mmol/L Carbon Dioxide (22-30) mmol/L Anion Gap mmol/L BUN (7-17) mg/dL Creatinine (0.52-1.04) mg/dL Est GFR (CKD-EPI)AfAm (>60 ml/min/1.73 sqM) Est GFR (CKD-EPI)NonAf (>60 ml/min/1.73 sqM) Glucose (74-99) mg/dL Lactic Ac Sepsis Rflx Plasma Lactic Acid [place] (0.7-2.0) mmol/L Calcium (8.4-10.2) mg/dL Total Bilirubin (0.2-1.3) mg/dL AST (14-36) U/L ALT (4-34) U/L Alkaline Phosphatase (38-126) U/L Troponin I (0.000-0.034) ng/mL Total Protein (6.3-8.2) g/dL Albumin (3.5-5.0) g/dL Amylase (30-110) U/L Lipase (23-300) U/L Urine Color Yellow Urine Appearance Cloudy H (Clear) Urine pH 7.5 (5.0-8.0) Ur Specific [place] >1.050 H (1.001-1.035) Urine Protein Trace H (Negative) Urine Glucose (UA) Negative (Negative) Urine Ketones Negative (Negative) Urine Blood Negative (Negative) Urine Nitrite Negative (Negative) Urine Bilirubin Negative (Negative) Urine Urobilinogen 3.0 (<2.0) mg/dL Ur Leukocyte Esterase Trace H (Negative) Urine RBC <1 (0-5) /hpf Urine WBC 2 (0-5) /hpf Ur Squamous Epith Cells 10 H (0-4) /hpf Urine Bacteria Rare H (None) /hpf 05/09/21 05/09/21 05/09/21 Range/Units 14:08 14:08 14:08 WBC (3.8-10.6) k/uL RBC (3.80-5.40) m/uL Hgb (11.4-16.0) gm/dL Hct (34.0-46.0) % MCV (80.0-100.0) fL MCH (25.0-35.0) pg MCHC (31.0-37.0) g/dL RDW (11.5-15.5) % Plt Count (150-450) k/uL MPV Neutrophils % % Lymphocytes % % Monocytes % % Eosinophils % % Basophils % % Neutrophils # (1.3-7.7) k/uL Lymphocytes # (1.0-4.8) k/uL Monocytes # (0-1.0) k/uL Eosinophils # (0-0.7) k/uL Basophils # (0-0.2) k/uL PT (9.0-12.0) sec INR (<1.2) APTT (22.0-30.0) sec Sodium 138 (137-145) mmol/L Potassium 4.0 (3.5-5.1) mmol/L Chloride 105 (98-107) mmol/L Carbon Dioxide 23 (22-30) mmol/L Anion Gap 10 mmol/L BUN 12 (7-17) mg/dL Creatinine 0.64 (0.52-1.04) mg/dL Est GFR (CKD-EPI)AfAm >90 (>60 ml/min/1.73 sqM) Est GFR (CKD-EPI)NonAf >90 (>60 ml/min/1.73 sqM) Glucose 184 H (74-99) mg/dL Lactic Ac Sepsis Rflx Plasma Lactic Acid August 2.5 H* (0.7-2.0) mmol/L Calcium 9.1 (8.4-10.2) mg/dL Total Bilirubin 0.6 (0.2-1.3) mg/dL AST 74 H (14-36) U/L ALT 36 H (4-34) U/L Alkaline Phosphatase 98 (38-126) U/L Troponin I <0.012 (0.000-0.034) ng/mL Total Protein 6.9 (6.3-8.2) g/dL Albumin 4.1 (3.5-5.0) g/dL Amylase 60 (30-110) U/L Lipase 177 (23-300) U/L Urine Color Urine Appearance (Clear) Urine pH (5.0-8.0) Ur Specific [place] (1.001-1.035) Urine Protein (Negative) Urine Glucose (UA) (Negative) Urine Ketones (Negative) Urine Blood (Negative) Urine Nitrite (Negative) Urine Bilirubin (Negative) Urine Urobilinogen (<2.0) mg/dL Ur Leukocyte Esterase (Negative) Urine RBC (0-5) /hpf Urine WBC (0-5) /hpf Ur Squamous Epith Cells (0-4) /hpf Urine Bacteria (None) /hpf 05/09/21 Range/Units 14:34 WBC (3.8-10.6) k/uL RBC (3.80-5.40) m/uL Hgb (11.4-16.0) gm/dL Hct (34.0-46.0) % MCV (80.0-100.0) fL MCH (25.0-35.0) pg MCHC (31.0-37.0) g/dL RDW (11.5-15.5) % Plt Count (150-450) k/uL MPV Neutrophils % % Lymphocytes % % Monocytes % % Eosinophils % % Basophils % % Neutrophils # (1.3-7.7) k/uL Lymphocytes # (1.0-4.8) k/uL Monocytes # (0-1.0) k/uL Eosinophils # (0-0.7) k/uL Basophils # (0-0.2) k/uL PT (9.0-12.0) sec INR (<1.2) APTT (22.0-30.0) sec Sodium (137-145) mmol/L Potassium (3.5-5.1) mmol/L Chloride (98-107) mmol/L Carbon Dioxide (22-30) mmol/L Anion Gap mmol/L BUN (7-17) mg/dL Creatinine (0.52-1.04) mg/dL Est GFR (CKD-EPI)AfAm (>60 ml/min/1.73 sqM) Est GFR (CKD-EPI)NonAf (>60 ml/min/1.73 sqM) Glucose (74-99) mg/dL Lactic Ac Sepsis Rflx Y Plasma Lactic Acid August (0.7-2.0) mmol/L Calcium (8.4-10.2) mg/dL Total Bilirubin (0.2-1.3) mg/dL AST (14-36) U/L ALT (4-34) U/L Alkaline Phosphatase (38-126) U/L Troponin I (0.000-0.034) ng/mL Total Protein (6.3-8.2) g/dL Albumin (3.5-5.0) g/dL Amylase (30-110) U/L Lipase (23-300) U/L Urine Color Urine Appearance (Clear) Urine pH (5.0-8.0) Ur Specific [place] (1.001-1.035) Urine Protein (Negative) Urine Glucose (UA) (Negative) Urine Ketones (Negative) Urine Blood (Negative) Urine Nitrite (Negative) Urine Bilirubin (Negative) Urine Urobilinogen (<2.0) mg/dL Ur Leukocyte Esterase (Negative) Urine RBC (0-5) /hpf Urine WBC (0-5) /hpf Ur Squamous Epith Cells (0-4) /hpf Urine Bacteria (None) /hpf Disposition Clinical Impression: Abdominal pain Disposition: HOME SELF-CARE Condition: Good Instructions (If sedation given, give patient instructions): Abdominal Pain (ED) Additional Instructions: Increase your fluid intake and advance your diet slowly. Clear liquids for the next 12 hours and then bland diet for next 24 hours. Follow-up with your primary care doctor this week. Return to the emergency room with any new or worsening symptoms. Is patient prescribed a controlled substance at d/c from ED?: No Referrals: Litzy Lawrence MD [Primary Care Provider] - 1-2 days Time of Disposition: 15:37
[2021-05-09 14:19] LABS: Basophils % (A) 0 %; Eosinophils # (A) 0.2 k/uL (0-0.7); Eosinophils % (A) 2 %; HCT 40.3 % (34.0-46.0); HGB 13.9 gm/dL (11.4-16.0); Lymphocytes # (A) 1.5 k/uL (1.0-4.8); Lymphocytes % (A) 21 %; MCH 31.9 pg (25.0-35.0); MCHC 34.6 g/dL (31.0-37.0); MCV 92.3 fL (80.0-100.0); Monocytes # (A) 0.3 k/uL (0-1.0); Monocytes % (A) 4 %; Neutrophils # (A) 5.1 k/uL (1.3-7.7); Neutrophils % (A) 71 %; Platelet Count 276 k/uL (150-450); RBC 4.36 m/uL (3.80-5.40); RDW 12.9 % (11.5-15.5); WBC 7.2 k/uL (3.8-10.6)
[2021-05-09 14:31] LABS: Chloride 105 mmol/L (98-107); Partial Thromboplastin Time 23.8 sec (22.0-30.0); Prothrombin Time 10.3 sec (9.0-12.0)
[2021-05-09 14:33] LABS: ALT 36 U/L (4-34); AST 74 U/L (14-36); African American GFR (CKD) >90 (>60 ml/min/1.73 sqM); Albumin 4.1 g/dL (3.5-5.0); Alkaline Phosphatase 98 U/L (38-126); Amylase 60 U/L (30-110); Anion Gap 10 mmol/L; Blood Urea Nitrogen 12 mg/dL (7-17); Calcium 9.1 mg/dL (8.4-10.2); Carbon Dioxide 23 mmol/L (22-30); Glucose 184 mg/dL (74-99); Lipase 177 U/L (23-300); Non-African American GFR(CKD) >90 (>60 ml/min/1.73 sqM); Sodium 138 mmol/L (137-145); Total Bilirubin 0.6 mg/dL (0.2-1.3); Total Protein 6.9 g/dL (6.3-8.2)
--- NOTE | 2021-05-09 15:24 | CT ---
EXAMINATION TYPE: CT abdomen pelvis w con DATE OF EXAM: 05/09/2021 COMPARISON: CT 11/19/2017 HISTORY: Mid abdominal pain. CT DLP: 1778.6 mGycm Automated exposure control for dose reduction was used. TECHNIQUE: Helical acquisition of images from the lung bases through the pelvis have been completed. CONTRAST: Performed without Oral Contrast and with IV Contrast, patient injected with 100 mL of Isovue 300. FINDINGS: LUNG BASES: No significant abnormality is appreciated. AORTA: No significant abnormality is appreciated. LIVER/GB: Patient is post cholecystectomy, an interval finding. PANCREAS: No significant abnormality is seen. SPLEEN: No significant abnormality is seen. ADRENALS: No significant abnormality is seen. KIDNEYS: Circumaortic left renal vein is present. REPRODUCTIVE ORGANS: No significant abnormality is seen BOWEL: Diverticular changes associated with the sigmoid colon Appendix shows no inflammatory change. FREE AIR: No Free Air visible. ASCITES: None visible. PELVIC ADENOPATHY: None visualized. RETROPERITONEAL ADENOPATHY: No Retroperitoneal Adenopathy visible. URINARY BLADDER: No significant abnormality is seen. OSSEOUS STRUCTURES: No significant abnormality is seen. IMPRESSION: DIVERTICULOSIS AND POSTOP CHANGE
[2021-05-09] MEDS ORDERED: FAMOTIDINE 20 MG/2 ML VIAL IV STA (15:32)
[2021-05-09 15:44] VITALS: BP 130/69; PULSE 64; RESP 20
[2021-05-09 15:55] LABS: Appearance,Urine Cloudy (Clear); Bacteria,Urine Rare /hpf; Bilirubin,Urine Negative (Negative); Blood,Urine Negative (Negative); Color,Urine Yellow; Glucose,Urine (UA) Negative (Negative); Ketones,Urine Negative (Negative); Leukocyte Esterase,Urine Trace (Negative); Nitrite,Urine Negative (Negative); PH, Urine 7.5 (5.0-8.0); Protein,Urine Trace (Negative); RBC,Urine <1 /hpf (0-5); Squamous Epithelial Cell,Urine 10 /hpf (0-4); WBC,Urine 2 /hpf (0-5)
[2021-05-09 15:57] LABS: Specific Gravity,Urine >1.050 (1.001-1.035)
== END 2021-05-09 17:06 | disposition home or self-care (01) ==
LOC: EC 13:25
DX: R10.13 Epigastric pain (principal); Z79.82 Long term (current) use of aspirin; Z79.51 Long term (current) use of inhaled steroids; Z79.899 Other long term (current) drug therapy
CPT/HCPCS: 36415; 93005; 80053; 82150; 83605; 83690; 84484; 85025; 85610; 85730; 81001; 74177; 99284; 96374; 96375; 96361 ×3; J2270; Q9967

== ENCOUNTER → 2022-06-05 | Outpatient (CLI) | payer BC ==
--- NOTE | 2022-06-05 07:36 | US ---
EXAMINATION TYPE: US thyroid st tissue head/neck DATE OF EXAM: 06/05/2022 COMPARISON: NONE CLINICAL HISTORY: E04.1 NONTOXIC SINGLE THYROID NODULE. Family history of thyroid cancer GLAND SIZE: Right Lobe: 3.9 x 1.7 x 1.7 cm Overall Parenchyma: homogenous Left Lobe: 3.6 x 1.1 x 1.4 cm Overall Parenchyma: homogeneous Isthmus Thickness: 0.4 cm NODULES RIGHT: # of nodules measured on right: sub-centimeter mixed nodule = 0.4cm LEFT: # of nodules measured on left: 0 ISTHMUS: # of nodules measured in the isthmus: 0 Bilateral neck scanned, no evidence of lymphadenopathy. Homogeneous small size thyroid with few scattered tiny nodules under 5 mm in size. IMPRESSION: As above. No significant nodules present.
--- NOTE | 2022-06-06 08:36 | MM ---
Reason for Exam: Screening (asymptomatic). Baseline mammogram. Patient History: Menarche at age 12. First Full-Term at age 22. Postmenopausal. Risk Values: Olimpia 5 year model risk: 1.4%. NCI Lifetime model risk: 6.2%. Prior Study Comparison: Patient's first Mammogram. Tissue Density: The breast tissue is heterogeneously dense. This may lower the sensitivity of mammography. Findings: Analyzed By CAD. There is no suspicious group of microcalcifications or suspicious mass in either breast. Overall Assessment: Negative, BI-RAD 1 Management: Screening Mammogram of both breasts in 1 year. A clinical breast exam by your physician is recommended on an annual basis and results should be correlated with mammographic findings. Electronically signed and approved by: Uri Robert D.O.
== END | disposition home or self-care (01) ==
LOC: RADUSWWP 06:57
PROVIDERS: ATTEND Family Medicine
DX: Z12.31 Encounter for screening mammogram for malignant neoplasm of breast (principal); E04.1 Nontoxic single thyroid nodule; Z78.0 Asymptomatic menopausal state
CPT/HCPCS: 76536; 77063; 77067